=== PATIENT | male | born 1995 | race Caucasian/White ===

== ENCOUNTER 2024-08-01 13:58 | Inpatient (IN) | payer OTHER, SELFPAY ==
[2024-08-01] VITALS (7 sets, daily range): BP systolic 108–141; BP diastolic 60–97; PULSE 66–95; RESP 12–18; TEMP 36.6–36.9; O2SAT 90–98; BMI 25.8
--- NOTE | 2024-08-01 14:02 | ECG_ITS ---
Tricida Skweez Test Date: 2024-08-01 Pat Name: Jose G Levy Department: Room: Gender: Male Legal Job Titles: : 1995 Requested By: Radha Ortiz Order Number: [id number] Oscar MD: Hali Llamas M.D. Measurements Intervals [place] Rate: 80 P: 67 FL: 182 QRS: 86 QRSD: 121 T: 47 QT: 387 QTc: 447 Interpretive Statements SINUS RHYTHM POSSIBLE LEFT ATRIAL ENLARGEMENT [-0.1mV P-WAVE IN V1/V2] POSSIBLE RIGHT VENTRICULAR CONDUCTION DELAY [RSR (QR) IN V1/V2] No previous ECG available for comparison Electronically Signed On 08-01-2024 22:41:00 CDT by Hali Llamas M.D. [email or web address]
--- NOTE | 2024-08-01 14:22 | ED_ITS ---
HPI - Overdose 2 General: Chief Complaint: Overdose Stated Complaint: SI/ Overdose Time Seen by Provider: 08/01/24 13:59 History of Present Illness: 28-year-old man emergency room with alco hol intoxication and an attempted overdose. Apparently he took 10 of his 's Prozac. 40 mg. He says he thinks of suicidal thoughts all the time. He says nothing really provoked him he just had an impulsive thought to kill himself. Related Data Home Medications Medication Instructions Recorded Confirmed fluoxetine 40 mg capsule 40 mg PO QAM 08/01/24 08/01/24 folic acid 1 mg tablet 1 mg PO DAILY 08/01/24 08/01/24 hydroxyzine HCl 25 mg tablet 25 mg PO TID 08/01/24 08/01/24 trazodone 50 mg tablet 50 mg PO QPM 08/01/24 08/01/24 Allergies Allergy/AdvReac Type Severity Reaction Status Date / Time No Known Allergies Allergy Verified 08/01/24 14:09 Review of Systems 2 Narrative: Constitutional symptoms: Negative except as documented in HPI. Skin symptoms: Negative except as documented in HPI. Eye symptoms: Negative except as documented in HPI. ENMT symptoms: Negative except as documented in HPI. Respiratory symptoms: Negative except as documented in HPI. Cardiovascular symptoms: Negative except as documented in HPI. Gastrointestinal symptoms: Negative except as documented in HPI. Genitourinary symptoms: Negative except as documented in HPI. Musculoskeletal symptoms: Negative except as documented in HPI. Neurologic symptoms: Negative except as documented in HPI. Psychiatric symptoms: Negative except as documented in HPI. Endocrine symptoms: Negative except as documented in HPI. Physical Exam 2 Narrative: EXAM NARRATIVE: General: Alert, no acute distress. Skin: Warm, dry. Head: Normocephalic, atraumatic. Neck: Supple, trachea midline. Eye: Extraocular movements are intact. Ears, nose, mouth and throat: mucosa moist. Cardiovascular: Regular, Normal peripheral perfusion. Respiratory: Lungs are clear to auscultation, respirations are non-labored, breath sounds are equal, Symmetrical chest wall expansion. Gastrointestinal: Soft, Nontender, Non distended Musculoskeletal: Normal ROM, no deformity. Neurological: Alert and oriented, No focal neurological deficit observed. Psychiatric: Cooperative, appears intoxicated, quite talkative, does endorse daily suicidal thoughts. Course 2 Vital Signs: Vital signs: Vital Signs Temperature 97.9 F 10/23/24 14:00 Pulse Rate 76 08/01/24 15:31 Respiratory Rate 12 08/01/24 14:00 Blood Pressure 118/72 08/01/24 15:31 Pulse Oximetry 90 08/01/24 15:31 Oxygen Delivery Me thod Room Air 08/01/24 15:31 MDM - Overdose Medical Decision Making Differential diagnosis: Patient with reported depression and suicidal ideation. concerns for infection, alcohol intoxication, cardiac issues or other medical problems prior to psychiatric admission. Workup: labwork, ekg ordered to evaluate the pathologies and to clear the patient medically prior to psychiatric admission EKG: Time 1402. Rate 80. Normal sinus rhythm, No ST-T changes, no ectopy, normal VA & QRS intervals, This was reviewed and interpreted by myself the ER physician at 1405 Lab Review: Laboratory results were reviewed and interpreted by myself the emergency room physician. Lab review: - Medically cleared. - EKG shows no ischemic changes. - Blood alcohol level is 144, -Tylenol and salicylate levels are negative. - Drug screen is negative - No signs of infection, urinalysis clear and white count is not elevated - No anemia. - BUN and creatinine are within normal limits. Consultation: I spoke with Dr. Barreto who agrees to admission. Assessment and plan: Suicidal ideation Intentional overdose Alcohol intoxication -Admission to neuropsychiatric unit for continued evaluation and treatment. - All lab work was reviewed and interpreted personally by myself, the ER physician - Evaluation and treatment of this problem were appropriate in the emergency setting Lab Data 08/01/24 14:34 08/01/24 14:34 Laboratory Results WBC 10.89 10^3/uL (3.29-11.43) 08/01/24 14:34 RBC 4.46 10^6/uL (3.85-5.65) 08/01/24 14:34 Hgb 13.60 g/dL (11.27-16.99) 08/01/24 14:34 Hct 39.8 % (37-53) 08/01/24 14:34 MCV 89.2 fl (82-101) 08/01/24 14:34 MCH 30.5 pg (27-33) 08/01/24 14:34 MCHC 34.2 g/dL (30-55) 08/01/24 14:34 RDW 12.4 % (12.1-15.1) 08/01/24 14:34 Plt Count 154 10^3/cmm (157-399) L 08/01/24 14:34 MPV 10.2 fL (7.4-10.4) 08/01/24 14:34 Neut % (Auto) 78.1 % 08/01/24 14:34 Lymph % (Auto) 12.9 % 08/01/24 14:34 [place] % (Auto) 7.0 % 08/01/24 14:34 Eos % (Auto) 1.0 % 08/01/24 14:34 Baso % (Auto) 0.5 % 08/01/24 14:34 Neut # (Auto) 8.52 10^3/uL (1.8-7.7) H 08/01/24 14:34 Lymph # (Auto) 1.4 10^3/uL (0.8-4.8) 08/01/24 14:34 [place] # (Auto) 0.8 10^3/uL (0.2-0.9) 08/01/24 14:34 Eos # (Auto) 0.1 10^3/uL (0.0-0.8) 08/01/24 14:34 Baso # (Auto) 0.1 10^3/uL (0.0-0.1) 08/01/24 14:34 Nucleated RBC % (auto) 0 % 08/01/24 14:34 Nucleated RBCs # 0.0 /100WBC 08/01/24 14:34 Sodium 134 mmol/L (136-145) L 08/01/24 14:34 Potassium 3.7 mmol/L (3.5-5.1) 08/01/24 14:34 Chloride 98 mmol/L (98-107) 08/01/24 14:34 Carbon Dioxide 22 mmol/L (22-29) 08/01/24 14:34 Anion Gap 17.7 (5-19) 08/01/24 14:34 BUN 14 mg/dL (6-20) 08/01/24 14:34 Creatinine 0.8 mg/dL (0.7-1.2) 08/01/24 14:34 GFR Calculation 115.1 mL/min (90-130) 08/01/24 14:34 Glucose 88 mg/dL (65-115) 08/01/24 14:34 Calculated Osmolality 278 mOsm/kg (285-295) L 08/01/24 14:34 Calcium 8.6 mg/dL (8.5-10.5) 08/01/24 14:34 Total Bilirubin 0.2 mg/dL (0.15-1.2) 08/01/24 14:34 AST 23 U/L (0-40) 08/01/24 14:34 ALT 14 U/L (0-41) 08/01/24 14:34 Alkaline Phosphatase 62 U/L (40-130) 08/01/24 14:34 Total Protein 6.8 g/dL (6.6-8.7) 08/01/24 14:34 Albumin 4.9 g/dL (3.5-5.2) 08/01/24 14:34 Globulin 1.9 g/dL (1.3-4.6) 08/01/24 14:34 TSH 0.80 uIU/mL (0.27-4.20) 08/01/24 14:34 Urine Color Yellow (Yellow) 08/01/24 14:20 Urine Appearance Clear (CLEAR) 08/01/24 14:20 Urine pH 5.5 (5-7) 08/01/24 14:20 Ur Specific Nursery 1.003 (1.005-1.030) L 08/01/24 14:20 Urine Protein Negative (Negative) 08/01/24 14:20 Urine Glucose (UA) Negative (Normal) 08/01/24 14:20 Urine Ketones Negative (Negative) 08/01/24 14:20 Urine Blood Negative (Negative) 08/01/24 14:20 Urine Nitrate Negative (Negative) 08/01/24 14:20 Urine Bilirubin Negative (Negative) 08/01/24 14:20 Urine Urobilinogen 0.2 mg/dL (Negative) 08/01/24 14:20 Ur Leukocyte Esterase Negative (Negative) 08/01/24 14:20 Urine RBC 0-2 /hpf (0-2) 08/01/24 14:20 Urine WBC 0-5 /hpf (0-5) 08/01/24 14:20 Ur Squamous Epith Cells 0-5 /hpf (0-5) 08/01/24 14:20 Amorphous Sediment Not Reportable 08/01/24 14:20 Urine Bacteria None seen /hpf (NONE) 08/01/24 14:20 Hyaline Casts 0-4 /lpf H 08/01/24 14:20 Salicylates < 0.3 mg/dL (3-10) L 08/01/24 14:34 Urine Opiates Screen Negative ng/mL (Negative) 08/01/24 14:20 Acetaminophen < 5.0 ug/mL (10-30) L 08/01/24 14:34 Ur Barbiturates Screen Negative ng/mL (Negative) 08/01/24 14:20 Ur Phencyclidine Scrn Negative ng/mL (Negative) 08/01/24 14:20 Ur Amphetamines Screen Negative ng/mL (Negative) 08/01/24 14:20 U Benzodiazepines Scrn Negative ng/mL (Negative) 08/01/24 14:20 Urine Cocaine Screen Negative ng/mL (Negative) 08/01/24 14:20 U Marijuana (THC) Screen Negative ng/mL (Negative) 08/01/24 14:20 Ethyl Alcohol 144 mg/dL (0-10) H 08/01/24 14:34 No radiology studies performed this visit Discharge Plan Discharge Patient Disposition: Admitted As Inpatient Clinical Impression: Depression with suicidal ideation, Intentional overdose, Alcohol intoxication Condition: Stable Coding Level of Care Code ED Preservationist for Emily Oliva
--- NOTE | 2024-08-01 14:25 | PC.NURSE ---
96 hour hold rights read and reviewed with patient. Patient verbalized understandings. He stated that his name was spelled wrong on his name band and paperwork. This nurse got patients I.D. and confirmed with patient and had registration fix patients name in the system.
--- NOTE | 2024-08-01 14:26 | PC.NURSE ---
This nurse contacted poison control via phone. Rm, a pharmacist, said 200 mg is considered toxic dose and peak time is 6-8 hours. Rm stated pt could experience n/v, tachycardia, and dry mouth. Rm said to rule out co-ingestions, do initial EKG and repeat in 4-6 hours, and collect a UDS. Rm said he was going to fax information regarding medication to us. This nurse relayed this information to .
[2024-08-01 14:35] LABS: Bilirubin Urine Negative (Negative); Blood Urine Negative (Negative); Glucose Urine UA Negative (Normal); Ketones Urine Negative (Negative); Leukocyte Esterase Urine Negative (Negative); Nitrate Urine Negative (Negative); Protein Urine Negative (Negative); Specific Gravity, Urine 1.003 (1.005-1.030); Urine Appearance Clear (CLEAR); Urine Color Yellow (Yellow); Urobilinogen Urine 0.2 mg/dL (Negative); pH Urine 5.5 (5-7)
[2024-08-01 14:39] LABS: Bacteria Urine None Seen /hpf; Hyaline Casts Urine 0-4 /lpf; RBC Urine 0-2 /hpf (0-2); Squamous Epithelial Cell Urine 0-5 /hpf (0-5); WBC Urine 0-5 /hpf (0-5)
[2024-08-01 14:43] LABS: Amphetamines Screen Urine Negative (Negative); Barbiturates Screen Urine Negative (Negative); Benzodiazepines Screen Urine Negative (Negative); Cocaine Screen Urine Negative (Negative); Opiate Screen Urine Negative (Negative); PCP Screen Urine Negative (Negative); THC Screen Urine Negative (Negative)
[2024-08-01 14:43] LABS: Basophils # 0.1 10^3/uL (0.0-0.1); Basophils % 0.5 %; Eosinophils # 0.1 10^3/uL (0.0-0.8); Hematocrit 39.8 % (37-53); Lymphocytes # 1.4 10^3/uL (0.8-4.8); Lymphocytes % 12.9 %; Mean Corpuscular HGB Conc 34.2 g/dL (30-55); Mean Corpuscular Hemoglobin 30.5 pg (27-33); Mean Corpuscular Volume 89.2 fl (82-101); Mean Platelet Volume 10.2 fL (7.4-10.4); Monocytes # 0.8 10^3/uL (0.2-0.9); Neutrophils # 8.52 10^3/uL (1.8-7.7); Neutrophils % 78.1 %; Nucleated Red Blood Cells % 0 %; Platelet Count 154 10^3/cmm (157-399); Red Blood Count 4.46 10^6/uL (3.85-5.65); Red Cell Distribution Width 12.4 % (12.1-15.1); White Blood Count 10.89 10^3/uL (3.29-11.43)
[2024-08-01 15:20] LABS: Alanine Aminotransferase 14 U/L (0-41); Albumin Level 4.9 g/dL (3.5-5.2); Alcohol Level 144 mg/dL (0-10); Alkaline Phosphatase 62 U/L (40-130); Anion Gap 17.7 (5-19); Aspartate Amino Transferase 23 U/L (0-40); Blood Urea Nitrogen 14 mg/dL (6-20); Calcium 8.6 mg/dL (8.5-10.5); Carbon Dioxide 22 mmol/L (22-29); Chloride 98 mmol/L (98-107); Creatinine Clr Calc Pharmacy 139.7752; Globulin 1.9 g/dL (1.3-4.6); Glomerular Filtration Rate 115.1 mL/min (90-130); Glucose 88 mg/dL (65-115); Osmolality Calculated 278 mOsm/kg (285-295); Potassium 3.7 mmol/L (3.5-5.1); Sodium 134 mmol/L (136-145); Total Bilirubin 0.2 mg/dL (0.15-1.2); Total Protein 6.8 g/dL (6.6-8.7)
[2024-08-01 15:23] LABS: Acetaminophen < 5.0 ug/mL (10-30); Salicylate < 0.3 mg/dL (3-10)
[2024-08-01] MEDS: nicotine 21 mg Patch 1 PATCH TRANSDERMA (18:27)
[2024-08-02 06:00] VITALS: BP 120/61; PULSE 61; RESP 16; TEMP 37; O2SAT 96
[2024-08-02 08:00] VITALS: BP 132/80; PULSE 60; RESP 16; TEMP 36.7; O2SAT 98
--- NOTE | 2024-08-02 09:33 | PC.NURSE ---
LAYING IN BED STARRING UP AT THE CEILING. MAKES NO EYE CONTACT WITH THIS RN. FLAT AFFECT IS NOTED WITH DEPRESSED AND ANXIOUS MOOD. REPORTS HE DID NOT SLEEP GOOD LAST NIGHT. STATES I DON'T TAKE SLEEPING PILLS. ENDORSES FREQUENT SUICIDAL THOUGHTS WITH NO PLAN. STATES HE HAS THOUGHTS OF HARMING OTHERS BUT WOULD NOT ELABORATE. DENIES AVH AT THIS TIME. RATES ANXIETY AND DEPRESSION 04/18. MED NURSE TO GIVE PRN ANXIETY MEDICATION. DENIES PAIN. STATES HE HAS NO GOAL. EVASIVE WITH ASSESSMENT QUESTIONS. CONTINUES [facility] FOR ALCHOHOL WITHDRAWAL PROTOCOL, SCORES ONE. ALL QUESTIONS ANSWERED AND SUPPORT WAS VOICED.
[2024-08-02] MEDS: folic acid 1 mg Tablet PO (09:49)
[2024-08-02] MEDS: thiamine 100 mg Tablet PO (09:49)
[2024-08-02] MEDS: multivitamin therapeutic Tablet 1 TAB PO (09:49)
[2024-08-02] MEDS: hyDROXYzine 25 mg Capsule 50 MG PO (09:50)
[2024-08-02 12:00] VITALS: BP 114/67; PULSE 57; RESP 16; O2SAT 99
[2024-08-02 16:00] VITALS: BP 115/74; PULSE 70; RESP 16; O2SAT 98
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
[2024-08-02 19:30] VITALS: BP 110/78; PULSE 83; RESP 18; TEMP 36.9; O2SAT 99
[2024-08-03 00:29] VITALS: RESP 16
--- NOTE | 2024-08-03 00:30 | PC.NURSE ---
pt refused resp at 16 nurse notified
[2024-08-03 04:00] VITALS: BP 115/68; PULSE 75; RESP 16; TEMP 36.6; O2SAT 99
[2024-08-03 07:30] VITALS: BP 127/81; PULSE 63; RESP 17; TEMP 37; O2SAT 100
[2024-08-03] MEDS: folic acid 1 mg Tablet PO (08:37)
[2024-08-03] MEDS: thiamine 100 mg Tablet PO (08:38)
[2024-08-03] MEDS: multivitamin therapeutic Tablet 1 TAB PO (08:38)
--- NOTE | 2024-08-03 08:40 | PC.NURSE ---
PT REPORTS HE SLEPT GOOD LAST NIGHT. ISOLATES AND WITHDRAWN TO ROOM. DENIES PAIN. DENIES SI/HI AND AVH AT THIS TIME. AFFECT IS FLAT, MOOD DEPRESSED. RATES ANXIETY 5/10 AND DEPRESSION 6/10. CONTINUES CIWA PROTOCOL AND SCORE IS ONE THIS AM. PT DENIES ANY ACUTE ALCOHOL WITHDRAWAL SYMPTOMS. PT STATES IS SUPPOSE TO START HIM ON A NEW ANTI DEPRESSANT DUE TO THE OTHER ONES NOT WORKING. ALL QUESTIONS ANSWERED AND SUPPORT WAS VOICED.
[2024-08-03 12:00] VITALS: BP 121/72; PULSE 64; RESP 17; TEMP 36.8; O2SAT 99
--- NOTE | 2024-08-03 17:34 | P.NPUPN_ITS ---
Subjective NPU 2 Subjective: 28-year-old male with borderline persona lity traits and major depressive disorder severe admitted with overdose on Prozac with a history of multiple suicidal attempts and chronic self-injurious behavior. Patient continued to report feeling depressed. He had endorsed some continued feelings of hopelessness. He had reported previous evidence of failure on 2 different antidepressants including Zoloft and Prozac and requested another medication. He had reported low energy and having frequent thoughts about harming himself for several years. He had reported a sense of hopelessness. He was able to attend groups. Patient had reported that he would like to continue psychotherapy on an outpatient basis. Psychoeducation regarding dialectical behavioral therapy was provided to the patient. Mental Status Exam 2 MSE Comments: Patient is a casually dressed healthy white male with fair hygiene and normal gait. There was no evidence of any abnormal involuntary motor movements, tics, or tremors appreciated. There was evidence of prominent psychomotor retardation. His speech was normal in regards to rate rhythm and prosody. He endorsed no frequent suicidal ideation with no active plan here but acknowledging signficant overdose. He denied any homicidal ideation. He did not appear to be responding to internal stimuli. There was no clear evidence of delusional thinking. There were healed scars noted on his hand and wrist. His thought process was linear, logical and goal-directed. He was alert and oriented to person,place, time, and situation. His attention span appeared fair. His recent and remote memory were grossly intact. His insight was poor. His judgment was poor. His impulse control appeared poor as well. Vitals/I&O/Wt Last Vital Signs Temp 98.2 F 08/03/24 12:00 Pulse 64 08/03/24 12:00 Resp 17 08/03/24 12:00 BP 121/72 08/03/24 12:00 Pulse Ox 99 08/03/24 12:00 O2 Del Method Room Air 08/03/24 04:00 Data NPU 08/01/24 14:34 08/01/24 14:34 A&P Assessment and plan (1) Alcohol abuse: (2) Major depressive disorder, recurrent severe without psychotic features: (3) Borderline personality disorder: Plan 28-year-old male history of self-injurious behavior, dysthymia, and alcohol abuse admitted after intentional overdose on Prozac with a long history of depression and poor impulse control. #1.? Engage patient in individual milieu and group therapy. #2?? Recommend sober living treatment at the highest level of care to which the patient is willing to commit #3??? CIWA for alcohol withdrawal #4?? TO-15 minute checks? #5?? Will attempt to gather collateral information #6 Will start effexor xr 37.5mg to target anxiety and depression. Referral for DBT.. Involuntary Hold Information 2 96 Hour Hold: 96 Hour Involuntary Admission: Yes 96 Hour Hold Ending Date: 08/07/24 96 Hour Hold Ending Time: 14:14 Other Hold: Hold End Date: 08/07/24 Attestations NPU 2 Medical Necessity Statement*: Inpatient hospitalization is medically necessary and deemed to ?be ?the clinically appropriate intervention ?at this time.? We will monitor/initiate medications and make changes as indicated.? The patient?s likely length of stay 5-7 days. Coding Level of Care Code Acute Code for [facility] Fwd Diagnoses Alcohol abuse F10.10 Major depressive disorder, recurrent severe without psychotic features F33.2 Borderline personality disorder F60.3
[2024-08-03] MEDS: venlafaxine ER (24HR) 37.5 mg Capsule PO (17:45)
[2024-08-03 19:28] VITALS: BP 141/88; PULSE 67; RESP 18; TEMP 36.8; O2SAT 99
[2024-08-03] MEDS: trazodone 50 mg Tablet PO (20:09)
[2024-08-04 06:00] VITALS: BP 107/70; PULSE 66; RESP 16; TEMP 36.5; O2SAT 99
[2024-08-04] MEDS: folic acid 1 mg Tablet PO (08:39)
[2024-08-04] MEDS: multivitamin therapeutic Tablet 1 TAB PO (08:39)
[2024-08-04] MEDS: thiamine 100 mg Tablet PO (08:39)
[2024-08-04] MEDS: venlafaxine ER (24HR) 37.5 mg Capsule PO (08:39)
[2024-08-04 14:00] VITALS: BP 127/83; PULSE 60; RESP 18; TEMP 36.8; O2SAT 100
--- NOTE | 2024-08-04 18:05 | P.NPUPN_ITS ---
Subjective NPU 2 Subjective: 28-year-old male with borderline persona lity traits and major depressive disorder severe admitted with overdose on Prozac with a history of multiple suicidal attempts and chronic self-injurious behavior. Patient had isolated himself on the milieu. He had reported continued depressed mood. The patient had stated that he was tolerating the Effexor at this time. He had reported feeling more hopeful about receiving outpatient psychotherapy. He had reported struggles at times with concentration and reported that he often struggled with worry as well. Patient had reported that he often engaged in self-injury as a means of managing emotional pain and tension. Mental Status Exam 2 MSE Comments: Patient is a casually dressed healthy white male with fair hygiene and normal gait. There was no evidence of any abnormal involuntary motor movements, tics, or tremors appreciated. There was evidence of prominent psychomotor retardation. His speech was normal in regards to rate rhythm and prosody. He endorsed no frequent suicidal ideation with no active plan currently. He denied any homicidal ideation. He did not appear to be responding to internal stimuli. There was no clear evidence of delusional thinking. There were healed scars noted on his hand and wrist. His thought process was linear, logical and goal-directed. He was alert and oriented to person,place, time, and situation. His attention span appeared fair. His recent and remote memory were grossly intact. His insight was poor. His judgment was poor. His impulse control appeared poor as well. Vitals/I&O/Wt Last Vital Signs Temp 98.2 F 08/04/24 14:00 Pulse 60 08/04/24 14:00 Resp 18 08/04/24 14:00 BP 127/83 08/04/24 14:00 Pulse Ox 100 08/04/24 14:00 O2 Del Method Room Air 08/04/24 14:00 Data NPU 08/01/24 14:34 08/01/24 14:34 A&P Assessment and plan (1) Major depressive disorder, recurrent severe without psychotic features: (2) Alcohol abuse: (3) Borderline personality disorder: Plan 28-year-old male history of self-injurious behavior, dysthymia, and alcohol abuse admitted after intentional overdose on Prozac with a long history of depression and poor impulse control. #1.? Engage patient in individual milieu and group therapy. #2?? Recommend sober living treatment at the highest level of care to which the patient is willing to commit #3??? CIWA for alcohol withdrawal #4?? TO-15 minute checks? #5?? Will attempt to gather collateral information #6 Increase Effexor xr 75mg in am. Referral for DBT.. Involuntary Hold Information 2 96 Hour Hold: 96 Hour Involuntary Admission: Yes 96 Hour Hold Ending Date: 08/07/24 96 Hour Hold Ending Time: 14:14 Other Hold: Hold End Date: 08/07/24 Attestations NPU 2 Medical Necessity Statement*: Inpatient hospitalization is medically necessary and deemed to ?be ?the clinically appropriate intervention ?at this time.? We will monitor/initiate medications and make changes as indicated.? The patient?s likely length of stay 5-7 days. Coding Level of Care Code Acute Code for Chg Fwd Diagnoses Major depressive disorder, recurrent severe without psychotic features F33.2 Alcohol abuse F10.10 Borderline personality disorder F60.3
[2024-08-04 20:26] VITALS: BP 124/78; PULSE 61; RESP 17; TEMP 36.5; O2SAT 100
[2024-08-04] MEDS: trazodone 50 mg Tablet PO (20:26)
[2024-08-05 05:34] VITALS: BP 110/72; PULSE 52; RESP 17; TEMP 36.4; O2SAT 100
[2024-08-05] MEDS: multivitamin therapeutic Tablet 1 TAB PO (08:12)
[2024-08-05] MEDS: folic acid 1 mg Tablet PO (08:12)
[2024-08-05] MEDS: venlafaxine ER (24HR) 75 mg Capsule PO (08:12)
[2024-08-05] MEDS: thiamine 100 mg Tablet PO (08:12)
[2024-08-05 14:00] VITALS: BP 121/81; PULSE 56; RESP 16; TEMP 36.7; O2SAT 99
--- NOTE | 2024-08-05 16:02 | P.NPUPN_ITS ---
Subjective NPU 2 Subjective: 28-year-old male with borderline persona lity traits and major depressive disorder severe admitted with overdose on Prozac with a history of multiple suicidal attempts and chronic self-injurious behavior. Patient reported no thoughts of hurting himself today. He had reported feeling more optimistic. He reported no side effects from his Effexor. He had continued to isolate himself on the milieu. He had expressed desire to begin psychotherapy on an outpatient basis. He had reported improved sleep with less frequent awakenings at night. Mental Status Exam 2 MSE Comments: Patient is a casually dressed healthy white male with fair hygiene and normal gait. There was no evidence of any abnormal involuntary motor movements, tics, or tremors appreciated. There was evidence of mild psychomotor retardation. His speech was normal in regards to rate rhythm and prosody. He endorsed no frequent suicidal ideation with no active plan currently. He denied any homicidal ideation. He did not appear to be responding to internal stimuli. There was no clear evidence of delusional thinking. There were healed scars noted on his hand and wrist. His thought process was linear, logical and goal- directed. He was alert and oriented to person,place, time, and situation. His attention span appeared fair. His recent and remote memory were grossly intact. His insight was poor. His judgment was poor. His impulse control appeared poor as well. Vitals/I&O/Wt Last Vital Signs Temp 98.0 F 08/05/24 14:00 Pulse 56 L 08/05/24 14:00 Resp 16 08/05/24 14:00 BP 121/81 08/05/24 14:00 Pulse Ox 99 08/05/24 14:00 O2 Del Method Room Air 08/05/24 05:34 Weight last 48 hrs Weight 78.471 kg Data NPU 08/01/24 14:34 08/01/24 14:34 A&P Assessment and plan (1) Major depressive disorder, recurrent severe without psychotic features: (2) Alcohol abuse: (3) Borderline personality disorder: Plan 28-year-old male history of self-injurious behavior, dysthymia, and alcohol abuse admitted after intentional overdose on Prozac with a long history of depression and poor impulse control. #1.? Engage patient in individual milieu and group therapy. #2?? Recommend sober living treatment at the highest level of care to which the patient is willing to commit #3??? CIWA for alcohol withdrawal #4?? TO-15 minute checks? #5?? Will attempt to gather collateral information #6 Continue Effexor xr 75mg in am. Referral for DBT.. Involuntary Hold Information 2 96 Hour Hold: 96 Hour Involuntary Admission: Yes 96 Hour Hold Ending Date: 08/07/24 96 Hour Hold Ending Time: 14:14 Other Hold: Hold End Date: 08/07/24 Attestations NPU 2 Medical Necessity Statement*: Inpatient hospitalization is medically necessary and deemed to ?be ?the clinically appropriate intervention ?at this time.? We will monitor/initiate medications and make changes as indicated.? The patient?s likely length of stay 1-2 days. Coding Level of Care Code Acute Code for Chg Fwd Diagnoses Major depressive disorder, recurrent severe without psychotic features F33.2 Alcohol abuse F10.10 Borderline personality disorder F60.3
[2024-08-05] MEDS: trazodone 50 mg Tablet PO (20:50)
[2024-08-05 21:41] VITALS: BP 122/83; PULSE 93; RESP 18; TEMP 36.7; O2SAT 95
[2024-08-06 06:00] VITALS: BP 115/70; PULSE 60; RESP 17; TEMP 36.5; O2SAT 100
[2024-08-06] MEDS: multivitamin therapeutic Tablet 1 TAB PO (08:54)
[2024-08-06] MEDS: folic acid 1 mg Tablet PO (08:55)
[2024-08-06] MEDS: venlafaxine ER (24HR) 75 mg Capsule PO (08:55)
[2024-08-06] MEDS: thiamine 100 mg Tablet PO (08:55)
[2024-08-06 11:39] VITALS: BP 115/70; PULSE 60; RESP 17; TEMP 36.5; O2SAT 100
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
[2024-08-06 14:00] VITALS: BP 123/86; PULSE 80; RESP 18; TEMP 36.6; O2SAT 99
== END 2024-08-06 16:13 | disposition home or self-care (01) | DRG 918 ==
LOC: ER 15:28 → NP 17:30
PROVIDERS: Admitting Provider Psychiatry & Neurology Psychiatry; Emergency Provider Emergency Medicine; Visit Provider Psychiatry & Neurology Psychiatry
DX: T43.222A Poisoning by selective serotonin reuptake inhibitors, intentional self-harm, initial encounter (principal); F33.2 Major depressive disorder, recurrent severe without psychotic features; R45.851 Suicidal ideations; F10.129 Alcohol abuse with intoxication, unspecified; Y90.6 Blood alcohol level of 120-199 mg/100 ml; F60.3 Borderline personality disorder; R45.88 Nonsuicidal self-harm; Z81.8 Family history of other mental and behavioral disorders; Z81.1 Family history of alcohol abuse and dependence
CPT/HCPCS: 36415; 80053; 80306; 80307; 81001; 84443; 85025; 93005; 97150; 97165; 99285

== ENCOUNTER 2024-08-07 15:47 | Inpatient (IN) | payer OTHER, SELFPAY ==
[2024-08-07] VITALS (26 sets, daily range): BP systolic 114–131; BP diastolic 71–87; PULSE 75–102; RESP 0–19; TEMP 35.9–36.8; O2SAT 98–100; BMI 24.3; BMI 24.4
--- NOTE | 2024-08-07 15:48 | ECG_ITS ---
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 Measurements Intervals [place] Rate: 88 P: 69 SC: 192 QRS: 89 QRSD: 114 T: 66 QT: 411 QTc: 498 Interpretive Statements SINUS RHYTHM POSSIBLE LEFT ATRIAL ENLARGEMENT [-0.1mV P-WAVE IN V1/V2] MODERATE INTRAVENTRICULAR CONDUCTION DELAY [110+ ms QRS DURATION] No previous ECG available for comparison Electronically Signed On 08-07-2024 16:24:12 CDT by Jacinto Redmond M.D. [email or web address]
--- NOTE | 2024-08-07 15:52 | PC.NURSE ---
PATIENT OVERDOSE MEDICATIONS: HYDROXYZINE 25 MG - APPROXIMATELY 9 PILLS EFFEXOR 37.5 MG - APPROXIMATELY 14 PILLS EFFEXOR 75 MG - APPROXIMATELY 14 PILLS FLUOXETINE 40 MG - APPROXIMATELY 1 PILL
--- NOTE | 2024-08-07 15:55 | W.ED.OVERDOS ---
HPI - Overdose General: Chief Complaint: Overdose Stated Complaint: Overdose Time Seen by Provider: 08/07/24 15:51 Source: EMS Mode of arrival: EMS Limitations: no limitations History of Present Illness: 28-year-old male who had recently been discharged from our psych vargas states that he is feeling suicidal today and did attempt to kill himself patient taken multiple of his meds and then shot himself in the garage with a lawnmower running. Patient is here by EMS he is a awake and alert answering all my questions appropriately he is not somnolent. He states he believes he took the pills around noon or 1. Related Data Home Medications Medication Instructions Recorded Confirmed folic acid 1 mg tablet 1 mg PO DAILY 08/01/24 08/01/24 hydroxyzine HCl 25 mg tablet 25 mg PO TID 08/01/24 08/01/24 Previous Rx's Medication Instructions Recorded trazodone 50 mg tablet 50 mg PO QPM 30 days #30 tabs 08/06/24 venlafaxine 150 mg 150 mg PO QAM #30 caps 08/06/24 capsule,extended release 24 hr (Effexor XR) venlafaxine 37.5 mg 37.5 mg PO DAILY 14 days #14 caps 08/06/24 capsule,extended release 24 hr (Effexor XR) venlafaxine 75 mg capsule,extended 75 mg PO DAILY #14 caps 08/06/24 release 24 hr (Effexor XR) Allergies Allergy/AdvReac Type Severity Reaction Status Date / Time No Known Allergies Allergy Verified 08/01/24 14:09 Review of Systems Const: Denies: fever(s), chills, body aches or change in appetite ENMT: Denies: throat pain or dental pain Card: Denies: chest pain Resp: Denies: dyspnea GI: Denies: abdominal pain, nausea, vomiting or diarrhea Musc: Denies: neck pain or back pain Skin/Breast: Denies: rash Neuro: Denies: headache(s) Psych: Reports: depression and suicidal ideation PFS ED PFSH: Family History (Updated 08/04/24 @ 15:12 by Fabiana Aparicio RN) Mother Psychiatric illness Physical Exam Const: COMMON NORMALS: no acute distress, patient oriented x3 and healthy appearing HENMT: COMMON NORMALS: normocephalic and atraumatic HEAD & SCALP: normocephalic and atraumatic Eye: COMMON NORMALS: conjunctivae normal CONJUNCTIVA: Yes conjunctivae normal Neck/C-Spine: COMMON NORMALS: full ROM and supple Chest: COMMONS NORMALS: normal inspection of the chest and normal palpation of entire chest wall Resp: COMMON NORMALS: normal respiratory effort, No retractions, No use of accessory muscles and clear to auscultation bilaterally AUSCULTATION: clear to auscultation bilaterally Cardio: COMMON NORMALS: regular rate, regular rhythm and No murmurs present (Cardio) RATE: regular rate RHYTHM: regular rhythm Extremity: COMMON NORMALS: normal to inspection and full ROM Neuro: COMMON NORMALS: patient oriented x3, moves all extremities and no focal motor deficits Psych: COMMON NORMALS: mental status grossly normal, Normal thought process present and cooperative MOOD & AFFECT: Yes depressed mood THOUGHT PROCESS: Normal thought process present THOUGHT CONTENT: Yes Suicidality present Skin: COMMON NORMALS: no rashes or lesions noted and no wounds GENERAL SKIN EXAM: no rashes or lesions noted Course Vital Signs: Vital signs: Vital Signs Temperature 97.6 F 08/07/24 15:53 Pulse Rate 89 08/07/24 15:53 Respiratory Rate 18 08/07/24 15:53 Blood Pressure 126/71 08/07/24 15:53 Pulse Oximetry 98 08/07/24 15:53 Oxygen Delivery Me thod Room Air 08/07/24 15:53 MDM - Overdose Medical Decision Making Patient presents here with an overdose and also had carbon oxide poisoning new him on nonrebreather he is awake and alert here I did speak to the hospitalist will admit to the ICU until he is cleared to be able to be transferred to the [facility] you have also consulted psychiatrist and placed patient on a 96-hour hold. Medical Records I reviewed the patient's medical records. Lab Data I reviewed the patient's lab results. 08/07/24 15:48 08/07/24 15:48 Laboratory Results WBC 10.61 10^3/uL (3.29-11.43) 08/07/24 15:48 RBC 4.93 10^6/uL (3.85-5.65) 08/07/24 15:48 Hgb 16.20 g/dL (11.27-16.99) 08/07/24 15:48 Hct 44.6 % (37-53) 08/07/24 15:48 MCV 90.5 fl (82-101) 08/07/24 15:48 MCH 32.9 pg (27-33) 08/07/24 15:48 MCHC 36.3 g/dL (30-55) 08/07/24 15:48 RDW 12.4 % (12.1-15.1) 08/07/24 15:48 Plt Count 168 10^3/cmm (157-399) 08/07/24 15:48 MPV 10.2 fL (7.4-10.4) 08/07/24 15:48 Neut % (Auto) 79.2 % 08/07/24 15:48 Lymph % (Auto) 12.8 % 08/07/24 15:48 Marshall % (Auto) 6.5 % 08/07/24 15:48 Eos % (Auto) 0.5 % 08/07/24 15:48 Baso % (Auto) 0.5 % 08/07/24 15:48 Neut # (Auto) 8.41 10^3/uL (1.8-7.7) H 08/07/24 15:48 Lymph # (Auto) 1.4 10^3/uL (0.8-4.8) 08/07/24 15:48 Marshall # (Auto) 0.7 10^3/uL (0.2-0.9) 08/07/24 15:48 Eos # (Auto) 0.1 10^3/uL (0.0-0.8) 08/07/24 15:48 Baso # (Auto) 0.1 10^3/uL (0.0-0.1) 08/07/24 15:48 Nucleated RBC % (auto) 0 % 08/07/24 15:48 Nucleated RBCs # 0.0 /100WBC 08/07/24 15:48 Specimen Type Arterial 08/07/24 15:57 Sample Site Radial, right 08/07/24 15:57 ABG pH 7.41 (7.35-7.45) 08/07/24 15:57 ABG pCO2 38.0 mmHg (35-45) 08/07/24 15:57 ABG pO2 79.2 mmHg (80.0-100.0) L 08/07/24 15:57 ABG PO2/FiO2 Ratio 377 08/07/24 15:57 ABG HCO3 23.9 mmol/L (22-26) 08/07/24 15:57 ABG O2 Saturation 98.3 08/07/24 15:57 ABG Base Excess -0.5 mmol/L (-2.0-2.0) 08/07/24 15:57 Navid Test Pos 08/07/24 15:57 A-a O2 Gradient 3.0 mmHg (5-10) L 08/07/24 15:57 Hematocrit 42.9 % (42-52) 08/07/24 15:57 Hgb O2 Saturation 71.9 % (95-100) L 08/07/24 15:57 Carboxyhemoglobin 25.7 %THgb (0.4-20.1) H 08/07/24 15:57 Methemoglobin 1.1 % (0.4-1.5) 08/07/24 15:57 Total Hemoglobin 14.0 g/dL (14-18) 08/07/24 15:57 Sodium 139.0 mmol/L (131-143) 08/07/24 15:57 Potassium 3.4 mmol/L (3.5-5.0) L 08/07/24 15:57 Glucose 93.0 mg/dL (70-115) 08/07/24 15:57 Ionized Calcium 1.1 mmol/L (1.1-1.4) 08/07/24 15:57 O2 Delivery Device Room air 08/07/24 15:57 FiO2 21.0 % 08/07/24 15:57 [employer] Shothole Driller ID [place] 08/07/24 15:57 Sodium 137 mmol/L (136-145) 08/07/24 15:48 Potassium 3.0 mmol/L (3.5-5.1) L 08/07/24 15:48 Chloride 98 mmol/L (98-107) 08/07/24 15:48 Carbon Dioxide 25 mmol/L (22-29) 08/07/24 15:48 Anion Gap 17.0 (5-19) 08/07/24 15:48 BUN 14 mg/dL (6-20) 08/07/24 15:48 Creatinine 1.0 mg/dL (0.7-1.2) 08/07/24 15:48 GFR Calculation 89.0 mL/min (90-130) L 08/07/24 15:48 Glucose 94 mg/dL (65-115) 08/07/24 15:48 Calculated Osmolality 284 mOsm/kg (285-295) L 08/07/24 15:48 Calcium 8.8 mg/dL (8.5-10.5) 08/07/24 15:48 Total Bilirubin 0.3 mg/dL (0.15-1.2) 08/07/24 15:48 AST 21 U/L (0-40) 08/07/24 15:48 ALT 18 U/L (0-41) 08/07/24 15:48 Alkaline Phosphatase 67 U/L (40-130) 08/07/24 15:48 Total Protein 7.5 g/dL (6.6-8.7) 08/07/24 15:48 Albumin 5.1 g/dL (3.5-5.2) 08/07/24 15:48 Globulin 2.4 g/dL (1.3-4.6) 08/07/24 15:48 Salicylates < 0.3 mg/dL (3-10) L 08/07/24 15:48 Acetaminophen < 5.0 ug/mL (10-30) L 08/07/24 15:48 Ethyl Alcohol 179 mg/dL (0-10) H 08/07/24 15:48 All radiology interpretation(s) finalized by discharge EKG Data EKG 1: I personally reviewed and interpreted this EKG as follows: EKG interpretation date: 08/07/24 EKG interpretation time: 15:50 Interpretation: nsr hr [address] elevation qrs 114 qtc 456 Discharge Plan Discharge Patient Disposition: Admitted As Inpatient Clinical Impression: Suicide attempt by multiple drug overdose, Carbon monoxide poisoning Condition: Stable Prescriptions: No Action folic acid 1 mg tablet 1 mg PO DAILY hydroxyzine HCl 25 mg tablet 25 mg PO TID venlafaxine [Effexor XR] 75 mg capsule,extended release 24hr 75 mg PO DAILY Qty: 14 1RF venlafaxine [Effexor XR] 37.5 mg capsule,extended release 24hr 37.5 mg PO DAILY 14 Days Qty: 14 1RF venlafaxine [Effexor XR] 150 mg capsule,extended release 24hr 150 mg PO QAM Qty: 30 1RF Rx Instructions: Begin after 08/13/24. trazodone 50 mg tablet 50 mg PO QPM 30 Days Qty: 30 1RF Coding Level of Care Code ED Women'S Studies Professor for Emily Oliva
[2024-08-07 15:59] LABS: Basophils # 0.1 10^3/uL (0.0-0.1); Basophils % 0.5 %; Eosinophils # 0.1 10^3/uL (0.0-0.8); Eosinophils % 0.5 %; Hematocrit 44.6 % (37-53); Lymphocytes # 1.4 10^3/uL (0.8-4.8); Lymphocytes % 12.8 %; Mean Corpuscular HGB Conc 36.3 g/dL (30-55); Mean Corpuscular Hemoglobin 32.9 pg (27-33); Mean Corpuscular Volume 90.5 fl (82-101); Mean Platelet Volume 10.2 fL (7.4-10.4); Monocytes # 0.7 10^3/uL (0.2-0.9); Monocytes % 6.5 %; Neutrophils # 8.41 10^3/uL (1.8-7.7); Neutrophils % 79.2 %; Nucleated Red Blood Cells % 0 %; Platelet Count 168 10^3/cmm (157-399); Red Blood Count 4.93 10^6/uL (3.85-5.65); Red Cell Distribution Width 12.4 % (12.1-15.1); White Blood Count 10.61 10^3/uL (3.29-11.43)
[2024-08-07 16:09] LABS: ABG PH Result 7.41 (7.35-7.45); Arterial Blood Gas Hematocrit 42.9 % (42-52); Base Excess ABG -0.5 mmol/L (-2.0-2.0); Blood Gas Allen Test Pos; Blood Gas Operator Identificat WALCI; Blood Gas Sample Site Radial, right; Blood Gas Sample Type Arterial; Carboxyhemoglobin 25.7 %THgb (0.4-20.1); HCO3 ABG 23.9 mmol/L (22-26); HGB O2 Sat 71.9 % (95-100); Ionized Calcium Level - ABG 1.1 mmol/L (1.1-1.4); Methemoglobin 1.1 % (0.4-1.5); Oxygen Device ROOM AIR; Oxygen Saturation ABG 98.3; PO2 ABG 79.2 mmHg (80.0-100.0); PO2 FiO2 Ratio Arterial Blood 377; Potassium Level - ABG 3.4 mmol/L (3.5-5.0)
--- NOTE | 2024-08-07 16:17 | PC.NURSE ---
96 hour hold rights read to patient. Nicolás from security present during reading of rights. Patient verbalized understandings. Copy of rights given to patient.
[2024-08-07 16:23] LABS: Alanine Aminotransferase 18 U/L (0-41); Albumin Level 5.1 g/dL (3.5-5.2); Alcohol Level 179 mg/dL (0-10); Alkaline Phosphatase 67 U/L (40-130); Aspartate Amino Transferase 21 U/L (0-40); Blood Urea Nitrogen 14 mg/dL (6-20); Calcium 8.8 mg/dL (8.5-10.5); Carbon Dioxide 25 mmol/L (22-29); Chloride 98 mmol/L (98-107); Creatinine Clr Calc Pharmacy 108.9978; Globulin 2.4 g/dL (1.3-4.6); Glucose 94 mg/dL (65-115); Osmolality Calculated 284 mOsm/kg (285-295); Sodium 137 mmol/L (136-145); Total Bilirubin 0.3 mg/dL (0.15-1.2); Total Protein 7.5 g/dL (6.6-8.7)
[2024-08-07 16:24] LABS: Acetaminophen < 5.0 ug/mL (10-30); Salicylate < 0.3 mg/dL (3-10)
--- NOTE | 2024-08-07 17:21 | XRR_ITS ---
PROCEDURE INFORMATION: Exam: XR Chest Exam date and time: 08/07/2024 5:25 PM Age: 28 years old Clinical indication: Shortness of breath; Additional info: SOB TECHNIQUE: Imaging protocol: Radiologic exam of the chest. Views: 1 view. COMPARISON: No relevant prior studies available. FINDINGS: Lungs: Unremarkable. No consolidation or mass. Pleural spaces: Unremarkable. No pleural effusion. No pneumothorax. Heart/Mediastinum: Unremarkable. No cardiomegaly. Bones/joints: Unremarkable. XR/XR chest 1V portable [id number] IMPRESSION: No acute findings.
--- NOTE | 2024-08-07 17:23 | P.HP_ITS ---
Providers/Chief Complaint 2 Chief Complaint: Overdose History of Present Illness Jose G Warren is a 28 year old male with a past medical history of major depressive disorder, who presents [facility] for suicide attempt. Currently patient is alert oriented x 3, following all commands, moves bilateral upper and lower extremities, pupils are equal round reactive to light, dilated, denies any specific complaints. Currently on nonrebreather for carbon monoxide poisoning. No evidence of respiratory distress, good mentation, but is drowsy. Patient reports that today he tried to kill himself, he drinks 6 beers, 2 shots, he locked himself in the garage with the riding lawn more. He took his medications he is not exactly sure which ones, Medications/Allergies Home Medications Medication Instructions Recorded Confirmed Last Taken Type folic acid 1 mg tablet 1 mg PO DAILY 08/01/24 08/01/24 Unknown History hydroxyzine HCl 25 mg tablet 25 mg PO TID 08/01/24 08/01/24 Unknown History trazodone 50 mg tablet 50 mg PO QPM 30 days #30 tabs 08/06/24 Unknown Rx venlafaxine 150 mg 150 mg PO QAM #30 caps 08/06/24 Unknown Rx capsule,extended release 24 hr (Effexor XR) venlafaxine 37.5 mg 37.5 mg PO DAILY 14 days #14 caps 08/06/24 Unknown Rx capsule,extended release 24 hr (Effexor XR) venlafaxine 75 mg capsule,extended 75 mg PO DAILY #14 caps 08/06/24 Unknown Rx release 24 hr (Effexor XR) Allergies Allergy/AdvReac Type Severity Reaction Status Date / Time No Known Allergies Allergy Verified 08/01/24 14:09 PFSH Acute 2 PFSH: Medical History (Updated 08/07/24 @ 17:24 by Robin Kowalski MD) Major depressive disorder, recurrent severe without psychotic features Surgical History (Updated 08/07/24 @ 17:25 by Robin Kowalski MD) No pertinent past surgical history Family History (Updated 08/04/24 @ 15:12 by Fabiana Aparicio RN) Mother Psychiatric illness Social History (Updated 08/07/24 @ 17:25 by Robin Kowalski MD) Smoking and tobacco/nicotine status: never used tobacco/nicotine Alcohol intake: current Substance/Drug Use: never Vitals/I&O/Wt Last Vital Signs Temp 97.6 F 08/07/24 15:53 Pulse 89 08/07/24 15:53 Resp 18 08/07/24 15:53 BP 126/71 08/07/24 15:53 Pulse Ox 98 08/07/24 15:53 O2 Del Method Room Air 08/07/24 15:53 Weight last 48 hrs Weight 72.575 kg Physical Exam 2 Const: COMMON NORMALS: no acute distress and patient oriented x3 HENMT: COMMON NORMALS: normocephalic HEAD & SCALP: normocephalic Eye: COMMON NORMALS: Equal, round and reactive pupils present Neck/C-Spine: COMMON NORMALS: no JVD Resp: COMMON NORMALS: normal respiratory effort, No retractions, No use of accessory muscles and clear to auscultation bilaterally AUSCULTATION: clear to auscultation bilaterally Cardio: COMMON NORMALS: no JVD, regular rate, regular rhythm, S1 normal heart sound present and S2 normal heart sound present RATE: regular rate RHYTHM: regular rhythm HEART SOUNDS: S1 normal heart sound present and S2 normal heart sound present GI: COMMON NORMALS: Normal to inspection, nondistended, normoactive bowel sounds present, Soft to palpation and non-tender Extremity: COMMON NORMALS: no calf tenderness and no pedal edema Neuro: COMMON NORMALS: patient oriented x3, CN's II-XII intact bilaterally and moves all extremities Psych: OTHER: bit is a bit drousy Data 08/07/24 15:48 08/07/24 15:48 A&P Assessment and plan (1) Alcohol intoxication: (2) Carbon monoxide poisoning: (3) Depression with suicidal ideation: (4) Intentional overdose: (5) Suicide attempt by multiple drug overdose: Qualifiers: Encounter type: initial encounter Qualified Code(s): T50.912A - Poisoning by multiple unspecified drugs, medicaments and biological substances, intentional self-harm, initial encounter Plan Carbon monoxide poisoning -Alert oriented x 3, following all commands -He is a bit drowsy -Carboxyhemoglobin levels greater than 25% ? Currently on a nonrebreather ? No evidence of respiratory distress, has good mentation ? Continue nonrebreather, until mentation improves # Will check carboxyhemoglobin level today p.m. ? Neurochecks # Aspiration precautions # Telemetry monitoring Intentional drug overdose ? Reports taking trazodone, Effexor, quantity unknown -Continue telemetry monitoring -Monitor QT interval Suicide attempt -Suicide precautions ?96-hour hold Alcohol abuse, alcohol intoxication -Reports drinking 6 beers, 2 shots before coming to the hospital ? CIWA protocol ? Banana bag ? IV fluids Full code ? SCDs for DVT prophylaxis, Attestations 2 Medical Necessity Statement*: Patient requires hospitalization, inpatient, greater than 2 midnights, for alcohol intoxication, carbon monoxide poisoning, intentional drug overdose, suicide attempt Diagnoses Alcohol intoxication F10.929 Carbon monoxide poisoning T58.91XA Depression with suicidal ideation F32.A; R45.851 Intentional overdose T50.902A Suicide attempt by multiple drug overdose T50.912A Encounter type: initial encounter
[2024-08-07] MEDS: pantoprazole 40 mg SDV IVP (18:34)
[2024-08-07] MEDS: dextrose 5%-sod chloride 0.9% 1,000 ML 75 ML IV (18:40)
[2024-08-07 19:23] LABS: Thyroid Stimulating Hormone 3.59 uIU/mL (0.27-4.20)
--- NOTE | 2024-08-07 19:28 | PC.NURSE ---
received patient from ER staff at 1819. Patient is oriented to person, place, time, and situation. HR: 95, BP: 129/87, SPO2: 100% on 10L NRBM, temp: 96.7. Patient is on a 96 hour hold for suicide attempt, unnecessary cords removed from room. Belongings included a pair of boots, a wallet, a hoodie, pants, and a belt. Locked in patient belonging locker#[id number]
[2024-08-07] MEDS: folic acid 1 MG, multivitamin inj 10 ML, thiamine 100 MG in sodium chloride 0.9% 1,000 ML 252.8 MG IV (19:30)
[2024-08-07 22:01] LABS: Amphetamines Screen Urine Negative (Negative); Barbiturates Screen Urine Negative (Negative); Benzodiazepines Screen Urine Negative (Negative); Cocaine Screen Urine Negative (Negative); Opiate Screen Urine Negative (Negative); PCP Screen Urine Negative (Negative); THC Screen Urine Negative (Negative)
[2024-08-08] VITALS (14 sets, daily range): BP systolic 117–151; BP diastolic 75–95; PULSE 70–126; RESP 16–18; TEMP 36.6–37.2; O2SAT 96–100; BMI 24.5
[2024-08-08 04:49] LABS: ABG PCO2 45.3 mmHg (35-45); ABG PH Result 7.35 (7.35-7.45); Base Excess ABG -0.7 mmol/L (-2.0-2.0); HCO3 ABG 25.2 mmol/L (22-26)
[2024-08-08 04:50] LABS: Blood Gas Allen Test POS; Blood Gas Operator Identificat JB; Oxygen Device NRB; PO2 FiO2 Ratio Arterial Blood 490; Potassium Level - ABG 3.6 mmol/L (3.5-5.0)
[2024-08-08 04:51] LABS: Arterial Blood Gas Hematocrit 41.6 % (42-52); Blood Gas Drawn By BISJE; Blood Gas Sample Site RIGHT RADIAL; Blood Gas Sample Type ARTERIAL
[2024-08-08 04:52] LABS: HGB O2 Sat 98.1 % (95-100); Ionized Calcium Level - ABG 1.1 mmol/L (1.1-1.4); Total Hemoglobin 13.6 g/dL (14-18)
[2024-08-08 04:53] LABS: Carboxyhemoglobin 0.6 %THgb (0.4-20.1); Methemoglobin 1.4 % (0.4-1.5)
[2024-08-08 05:00] LABS: Basophils % 0.2 %; Eosinophils # 0.1 10^3/uL (0.0-0.8); Eosinophils % 0.7 %; Hematocrit 42.5 % (37-53); Lymphocytes # 0.8 10^3/uL (0.8-4.8); Lymphocytes % 8.6 %; Mean Corpuscular HGB Conc 33.4 g/dL (30-55); Mean Corpuscular Hemoglobin 30.3 pg (27-33); Mean Corpuscular Volume 90.8 fl (82-101); Mean Platelet Volume 10.2 fL (7.4-10.4); Monocytes # 0.5 10^3/uL (0.2-0.9); Monocytes % 5.5 %; Neutrophils # 7.41 10^3/uL (1.8-7.7); Neutrophils % 84.5 %; Nucleated Red Blood Cells % 0 %; Platelet Count 143 10^3/cmm (157-399); Red Blood Count 4.68 10^6/uL (3.85-5.65); Red Cell Distribution Width 12.6 % (12.1-15.1); White Blood Count 8.76 10^3/uL (3.29-11.43)
[2024-08-08 05:16] LABS: Anion Gap 13.1 (5-19); Blood Urea Nitrogen 11 mg/dL (6-20); Calcium 8.3 mg/dL (8.5-10.5); Carbon Dioxide 26 mmol/L (22-29); Chloride 105 mmol/L (98-107); Creatinine Clr Calc Pharmacy 140.8167; Glomerular Filtration Rate 115.1 mL/min (90-130); Glucose 81 mg/dL (65-115); Osmolality Calculated 288 mOsm/kg (285-295); Potassium 4.1 mmol/L (3.5-5.1); Sodium 140 mmol/L (136-145)
[2024-08-08] MEDS: chlordiazePOXIDE 10 mg Capsule PO ×3 (09:45→20:38)
--- NOTE | 2024-08-08 10:51 | PC.NURSE ---
Rm from the Poison control center, closed patients case. Cleared.
--- NOTE | 2024-08-08 11:18 | PC.NURSE ---
Report was called to [facility]. Security helped transport the patient. All IVs were discontinued and belongings were taken with the patient. Patient was stable.
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
--- NOTE | 2024-08-08 13:46 | PC.NURSE ---
PT ARRIVED TO THE EMERGENCY ROOM AFTER INTENTIONAL OVERDOSE AND SHUT HIMSELF IN HIS GARAGE WITH THE LAWNMOWER RUNNING. PT WAS INITIALLY ADMITTED TO THE ICU FOR OBSERVATION DUE TO OVERDOSE AND CARBON MONOXIDE POISONING. PT HAD RECENTLY BEEN DISCHARGED FROM THE NPU. UPON ADMIT TO THE NPU PT STATES IM NOT SUICIDAL, IM JUST MAD THAT IM HERE AGAIN. PT STATED I CANNOT KILL MYSELF HERE SO IM NOT EVEN THINKING ABOUT IT. THAT IS WHY IM IN SUCH A GOOD MOOD NOW. PT WAS COOPERATIVE WITH ASSESSMENT. PT CURRENT NEEDS ARE MET AT THIS TIME.
--- NOTE | 2024-08-08 16:28 | P.PN_ITS ---
Subjective 2 Subjective: Patient was seen this morning, he is alert oriented x 3, following commands, no headache, no blurry vision, no nausea, no vomiting, no chest pain, he does have a mild tremor, denies any visual auditory or tactile hallucination, Vitals/I&O/Wt Last Vital Signs Temp 98 F 08/08/24 15:28 Pulse 73 08/08/24 15:28 Resp 16 08/08/24 15:28 BP 117/75 08/08/24 15:28 Pulse Ox 96 08/08/24 15:28 O2 Del Method Room Air 08/08/24 15:28 O2 Flow Rate 15 08/07/24 22:00 08/08/24 08/08/24 08/08/24 06:59 14:59 22:59 Intake Total 1011.2 / 1108.7 Output Total 800 / 1150 450 / 450 Balance 211.2 / -41.3 -450 / -450 Weight last 48 hrs Weight 75.296 kg Weight 75.5 kg Weight 75 kg Weight 72.575 kg Physical Exam 2 Const: COMMON NORMALS: no acute distress and patient oriented x3 Resp: COMMON NORMALS: normal respiratory effort, No retractions, No use of accessory muscles and clear to auscultation bilaterally AUSCULTATION: clear to auscultation bilaterally Cardio: COMMON NORMALS: regular rate, regular rhythm, S1 normal heart sound present and S2 normal heart sound present RATE: regular rate RHYTHM: r egular rhythm HEART SOUNDS: S1 normal heart sound present and S2 normal heart sound present GI: COMMON NORMALS: Normal to inspection, nondistended, normoactive bowel sounds present and non-tender Extremity: COMMON NORMALS: no pedal edema Neuro: COMMON NORMALS: patient oriented x3 Psych: COMMON NORMALS: mental status grossly normal Data 08/08/24 04:34 08/08/24 04:34 A&P Assessment and plan (1) Alcohol intoxication: (2) Carbon monoxide poisoning: (3) Depression with suicidal ideation: (4) Intentional overdose: (5) Suicide attempt by multiple drug overdose: Qualifiers: Encounter type: initial encounter Qualified Code(s): T50.912A - Poisoning by multiple unspecified drugs, medicaments and biological substances, intentional self-harm, initial encounter Plan Carbon monoxide poisoning -Alert oriented x 3, following all commands -Resolved Intentional drug overdose ? Reports taking trazodone, Effexor, quantity unknown Suicide attempt -Suicide precautions ?96-hour hold Alcohol abuse, alcohol intoxication -Reports drinking 6 beers, 2 shots before coming to the hospital ? CIWA protocol ? Due to tremors start Librium 10 mg every 6 hours, will wean over the next few days Full code Moved to n.p.u Attestations 2 Medical Necessity Statement*: Patient requires hospitalization for alcohol abuse, intoxication, withdrawal, suicide attempt Diagnoses Alcohol intoxication F10.929 Carbon monoxide poisoning T58.91XA Depression with suicidal ideation F32.A; R45.851 Intentional overdose T50.902A Suicide attempt by multiple drug overdose T50.912A Encounter type: initial encounter
[2024-08-08] MEDS: trazodone 50 mg Tablet PO (20:37)
[2024-08-09] VITALS (8 sets, daily range): BP systolic 117–134; BP diastolic 73–86; PULSE 60–80; RESP 16–18; TEMP 36.5–37.4; O2SAT 99–100
--- NOTE | 2024-08-09 00:26 | PC.NURSE ---
pt sleeping very well not wanting to wake up
[2024-08-09] MEDS: thiamine 100 mg Tablet PO (08:19)
[2024-08-09] MEDS: chlordiazePOXIDE 10 mg Capsule PO (08:20)
[2024-08-09] MEDS: multivitamin therapeutic Tablet 1 TAB PO (08:20)
[2024-08-09] MEDS: folic acid 1 mg Tablet PO (08:20)
--- NOTE | 2024-08-09 14:37 | P.NPUPN_ITS ---
Subjective NPU 2 Subjective: 28-year-old male with borderline persona lity traits and major depressive disorder severe admitted with overdose on medications with attempt to cause CO poisoning in garage with motor vehicle. Patient continued to endorse depressed mood. He continued to report no triggers associated with feeling suicidal. He reports that even prior to the use of alcohol after discharge he had felt depressed and only began drinking after he had begun the process of attempting to harm himself. He had been able to attend groups. He had reported previous compliance to [employer] and stated that he had not spoken to his yet. He remained motivated to consider therapy at this time. He had continued to endorse hopelessness. He reported some struggles with concentration. He had reported some difficulties falling asleep. Mental Status Exam 2 MSE Comments: Patient is a casually dressed healthy white male with adequate hygiene and normal gait. There was no evidence of any abnormal involuntary motor movements, tics, or tremors appreciated. His speech was normal in regards to rate, rhythm, and prosody. He endorsed suicidal ideation with a plan to kill himself by carbon oxide poisoning in the car. Mood was described as depressed. Affect: flat and mood congruent. He denied any homicidal ideation. He did not appear to be responding to internal stimuli. There was no clear evidence of delusional thinking. There were healed scars noted on his hand and wrist. His thought process was linear,logical and goal-directed. He was alert and oriented to person place time and situation. His attention span appeared fair. His recent remote memory were grossly intact. He was alert and oriented person, place, time, and situation. His insight was poor. His judgment was poor. His impulse control appeared poor as well. Vitals/I&O/Wt Last Vital Signs Temp 98.5 F 08/09/24 12:00 Pulse 68 08/09/24 12:00 Resp 17 08/09/24 12:00 BP 134/82 08/09/24 12:00 Pulse Ox 99 08/09/24 12:00 O2 Del Method Room Air 08/09/24 08:00 O2 Flow Rate 15 08/07/24 22:00 08/08/24 08/09/24 08/09/24 22:59 06:59 14:59 Output Total 450 / 900 Balance -450 / -900 Weight last 48 hrs Weight 75.296 kg Weight 75.5 kg Weight 75 kg Weight 72.575 kg Data NPU 08/08/24 04:34 08/08/24 04:34 A&P Assessment and plan (1) Major depressive disorder, recurrent severe without psychotic features: (2) Alcohol abuse: (3) Borderline personality disorder: Plan 28-year-old male history of self-injurious behavior, dysthymia, and alcohol abuse admitted after overdose on alcohol and multiple unknown medications after discharge less than 24 hours prior to this admission. #1.? Engage patient in individual milieu and group therapy. #2?? Recommend sober living treatment at the highest level of care to which the patient is willing to commit #3??? CIWA for alcohol withdrawal #4?? TO-15 minute checks? #5?? Will attempt to gather collateral information #6 Will restart effexor xr in 1-2 days. Consider ECT given level of depression and suicidality that appears unchanged. Involuntary Hold Information 2 96 Hour Hold: 96 Hour Involuntary Admission: Yes 96 Hour Hold Ending Date: 08/13/24 96 Hour Hold Ending Time: 16:04 Other Hold: Hold End Date: 08/07/24 Attestations NPU 2 Medical Necessity Statement*: Inpatient hospitalization is medically necessary and deemed to ?be ?the clinically appropriate intervention ?at this time.? We will monitor/initiate medications and make changes as indicated.? The patient?s likely length of stay 10-14 days. Coding Level of Care Code Acute Code for Chg Fwd Diagnoses Major depressive disorder, recurrent severe without psychotic features F33.2 Alcohol abuse F10.10 Borderline personality disorder F60.3
[2024-08-09] MEDS: trazodone 50 mg Tablet PO (20:57)
[2024-08-10 03:53] VITALS: BP 109/66; PULSE 51; RESP 16; TEMP 36.7; O2SAT 100
[2024-08-10 07:45] VITALS: BP 114/70; PULSE 56; RESP 18; TEMP 36.8; O2SAT 99
[2024-08-10] MEDS: multivitamin therapeutic Tablet 1 TAB PO (09:00)
[2024-08-10] MEDS: venlafaxine ER (24HR) 75 mg Capsule PO (09:00)
[2024-08-10] MEDS: folic acid 1 mg Tablet PO (09:00)
[2024-08-10] MEDS: thiamine 100 mg Tablet PO (09:01)
[2024-08-10 11:43] VITALS: BP 120/77; PULSE 89; RESP 16; TEMP 36.7; O2SAT 100
--- NOTE | 2024-08-10 15:16 | P.NPUPN_ITS ---
Subjective NPU 2 Subjective: Patient presented today reporting that he feels like he is doing okay. He does identify that this suicidality he has no clear nidus for. We discussed the conversation and planning that he had Dr. Barreto had undertaken surrounding transfer and possible ECT. He reports still being open to that as his behaviors and lethality portend a likely long admission with reports of limited success in the past with typical/standard interventions. He denied any side effects to the medication. Mental Status Exam 2 MSE Comments: Patient is a casually dressed healthy white male with adequate hygiene and normal gait. There was no evidence of any abnormal involuntary motor movements, tics, or tremors appreciated. His speech was normal in regards to rate, rhythm, and prosody. He endorsed suicidal ideation with a plan to kill himself by carbon oxide poisoning in the car. Mood was described as depressed. Affect: flat and mood congruent. He denied any homicidal ideation. He did not appear to be responding to internal stimuli. There was no clear evidence of delusional thinking. There were healed scars noted on his hand and wrist. His thought process was linear,logical and goal-directed. He was alert and oriented to person place time and situation. His attention span appeared fair. His recent remote memory were grossly intact. He was alert and oriented person, place, time, and situation. His insight was poor. His judgment was poor. His impulse control appeared poor as well. Vitals/I&O/Wt Last Vital Signs Temp 98.1 F 08/10/24 11:43 Pulse 89 08/10/24 11:43 Resp 16 08/10/24 11:43 BP 120/77 08/10/24 11:43 Pulse Ox 100 08/10/24 11:43 O2 Del Method Room Air 08/10/24 11:43 O2 Flow Rate 15 08/07/24 22:00 Data NPU 08/08/24 04:34 08/08/24 04:34 A&P Assessment and plan (1) Major depressive disorder, recurrent severe without psychotic features: (2) Alcohol abuse: (3) Borderline personality disorder: Plan 28-year-old male history of self-injurious behavior, dysthymia, and alcohol abuse admitted after overdose on alcohol and multiple unknown medications after discharge less than 24 hours prior to this admission. 1. Engage patient in individual milieu and group therapy. 2. Recommend sober living treatment at the highest level of care to which the patient is willing to commit 3. CIWA for alcohol withdrawal 4. TO-15 minute checks? 5. Will attempt to gather collateral information 6. Will restart effexor xr in 1-2 days. Consider ECT given level of depression and suicidality that appears unchanged. Involuntary Hold Information 2 96 Hour Hold: 96 Hour Involuntary Admission: Yes 96 Hour Hold Ending Date: 08/13/24 96 Hour Hold Ending Time: 16:04 Other Hold: Hold End Date: 08/07/24 Attestations NPU 2 Medical Necessity Statement*: Inpatient hospitalization is medically necessary and deemed to ?be ?the clinically appropriate intervention ?at this time.? We will monitor/initiate medications and make changes as indicated.? The patient?s likely length of stay 10-14 days. But possible discharge to facility to consider ECT. Coding Level of Care Code Acute Code for Chg Fwd Diagnoses Major depressive disorder, recurrent severe without psychotic features F33.2 Alcohol abuse F10.10 Borderline personality disorder F60.3
[2024-08-10 16:00] VITALS: BP 118/64; PULSE 65; RESP 18; TEMP 36.8; O2SAT 99
[2024-08-10 20:00] VITALS: BP 119/76; PULSE 68; RESP 17; TEMP 36.7; O2SAT 99
[2024-08-11] VITALS: BP 114/67; PULSE 71; RESP 18; TEMP 36.6; O2SAT 99
[2024-08-11 04:00] VITALS: BP 111/69; PULSE 66; RESP 17; TEMP 36.6; O2SAT 99
[2024-08-11 07:37] VITALS: BP 116/72; PULSE 60; RESP 16; TEMP 36.6; O2SAT 100
--- NOTE | 2024-08-11 08:24 | P.NPUPN_ITS ---
Subjective NPU 2 Subjective: Patient presented today reporting that things are unchanged. He continues to struggle with his inability to avoid lethality and his inability to keep himself safe. He continued to be open to the possibility of us working with the social work team on Tuesday to explore transfer to a facility that can do ECT. Otherwise we discussed the likelihood of restarting his Effexor XR tomorrow. Mental Status Exam 2 MSE Comments: Patient is a casually dressed healthy white male with adequate hygiene and normal gait. There was no evidence of any abnormal involuntary motor movements, tics, or tremors appreciated. His speech was normal in regards to rate, rhythm, and prosody. He endorsed suicidal ideation with a plan to kill himself by carbon oxide poisoning in the car. Mood was described as depressed. Affect: flat and mood congruent. He denied any homicidal ideation. He did not appear to be responding to internal stimuli. There was no clear evidence of delusional thinking. There were healed scars noted on his hand and wrist. His thought process was linear,logical and goal-directed. He was alert and oriented to person place time and situation. His attention span appeared fair. His recent remote memory were grossly intact. He was alert and oriented person, place, time, and situation. His insight was poor. His judgment was poor. His impulse control appeared poor as well. Vitals/I&O/Wt Last Vital Signs Temp 97.5 F L 08/11/24 20:46 Pulse 64 08/11/24 20:46 Resp 16 08/11/24 20:46 BP 125/78 08/11/24 20:46 Pulse Ox 100 08/11/24 20:46 O2 Del Method Room Air 08/11/24 14:00 O2 Flow Rate 15 08/07/24 22:00 Data NPU 08/08/24 04:34 08/08/24 04:34 A&P Assessment and plan (1) Major depressive disorder, recurrent severe without psychotic features: (2) Alcohol abuse: (3) Borderline personality disorder: Plan 28-year-old male history of self-injurious behavior, dysthymia, and alcohol abuse admitted after overdose on alcohol and multiple unknown medications after discharge less than 24 hours prior to this admission. 1. Engage patient in individual milieu and group therapy. 2. Recommend sober living treatment at the highest level of care to which the patient is willing to commit 3. CIWA for alcohol withdrawal 4. TO-15 minute checks? 5. Will attempt to gather collateral information 6. Will restart effexor xr in 1-2 days. Consider ECT given level of depression and suicidality that appears unchanged. Involuntary Hold Information 2 96 Hour Hold: 96 Hour Involuntary Admission: Yes 96 Hour Hold Ending Date: 08/13/24 96 Hour Hold Ending Time: 16:04 Other Hold: Hold End Date: 08/07/24 Attestations NPU 2 Medical Necessity Statement*: Inpatient hospitalization is medically necessary and deemed to ?be ?the clinically appropriate intervention ?at this time.? We will monitor/initiate medications and make changes as indicated.? The patient?s likely length of stay 10-14 days. But possible discharge to facility to consider ECT. Coding Level of Care Code Acute Code for g Fwd Diagnoses Major depressive disorder, recurrent severe without psychotic features F33.2 Alcohol abuse F10.10 Borderline personality disorder F60.3
[2024-08-11] MEDS: venlafaxine ER (24HR) 75 mg Capsule PO (08:29)
[2024-08-11] MEDS: folic acid 1 mg Tablet PO (08:29)
[2024-08-11] MEDS: multivitamin therapeutic Tablet 1 TAB PO (08:29)
[2024-08-11] MEDS: thiamine 100 mg Tablet PO (08:29)
[2024-08-11 14:00] VITALS: BP 116/68; PULSE 84; RESP 16; TEMP 37; O2SAT 100
[2024-08-11 20:46] VITALS: BP 125/78; PULSE 64; RESP 16; TEMP 36.4; O2SAT 100
[2024-08-11] MEDS: trazodone 50 mg Tablet PO (21:30)
[2024-08-12 01:14] LABS: Carboxyhemoglobin, Blood 6 %TOTAL HGB
[2024-08-12 05:57] VITALS: BP 112/77; PULSE 65; RESP 18; TEMP 36.8; O2SAT 99
--- NOTE | 2024-08-12 08:02 | PC.NURSE ---
The patient is in room, sitting in bed. The patient denies si/hi/avh upon assessment however endorses high anxiety and depression. The patient stated that yesterday his had called and said she was moving back to [place] because she could not deal with him anymore and told him not to contact her anymore. The patient is very distressed over this and voiced that he was hoping to leave very soon, because he thought maybe he could fix their relationship. The patient stated that he did not want to talk about it anymore and that he was going to get some more rest and laid back down in bed. RR even and unlabored.
--- NOTE | 2024-08-12 09:18 | PC.NURSE ---
The patient refused AM medications, looking visibly upset and stated From now on, I am refusing all treatments or monitoring. When educating the patient about taking the medications and adhering to treatment, the patient cut this nurse off and stated I don't care and I'm not doing it, because I don't feel it necessary. The patient then turned away from this nurse and laid back in bed, RR even and unlabored.
[2024-08-12 13:44] VITALS: RESP 16
--- NOTE | 2024-08-12 13:44 | PC.NURSE ---
Patient refused 1400 vital signs and told the BILINGUAL TEACHER that he will be refusing everything offered to him here. RR16
--- NOTE | 2024-08-12 15:08 | P.NPUPN_ITS ---
Subjective NPU 2 Subjective: Patient presented today reporting that he is feeling like he needs to leave. He was actually quite annoyed that he was not discharged after our conversation. He reports that his had contacted him and described the likelihood that she would be leaving him. He now reports that this is a catalyst for him to fight for her and not necessarily continue on this path to suicidal behavior. He could not however answer the question of what would he do if we discharged him and his attempts to lobby his to stay failed. We discussed significant concern about his lethality and the likelihood of filing a 21-day hold tomorrow. He reports that he will refuse all medication and all treatment if not discharged. Mental Status Exam 2 MSE Comments: Patient is a casually dressed healthy white male with adequate hygiene and normal gait. There was no evidence of any abnormal involuntary motor movements, tics, or tremors appreciated. His speech was normal in regards to rate, rhythm, and prosody. He endorsed suicidal ideation with a plan to kill himself by carbon oxide poisoning in the car. Mood was described as depressed. Affect: flat and mood congruent. He denied any homicidal ideation. He did not appear to be responding to internal stimuli. There was no clear evidence of delusional thinking. There were healed scars noted on his hand and wrist. His thought process was linear,logical and goal-directed. He was alert and oriented to person place time and situation. His attention span appeared fair. His recent remote memory were grossly intact. He was alert and oriented person, place, time, and situation. His insight was poor. His judgment was poor. His impulse control appeared poor as well. Vitals/I&O/Wt Last Vital Signs Temp 98.2 F 08/12/24 05:57 Pulse 65 08/12/24 05:57 Resp 16 08/12/24 13:44 BP 112/77 08/12/24 05:57 Pulse Ox 99 08/12/24 05:57 O2 Del Method Room Air 08/11/24 14:00 O2 Flow Rate 15 08/07/24 22:00 Weight last 48 hrs Weight 73.936 kg Weight 73.936 kg Data NPU 08/08/24 04:34 08/08/24 04:34 A&P Assessment and plan (1) Major depressive disorder, recurrent severe without psychotic features: (2) Alcohol abuse: (3) Borderline personality disorder: Plan 28-year-old male history of self-injurious behavior, dysthymia, and alcohol abuse admitted after overdose on alcohol and multiple unknown medications after discharge less than 24 hours prior to this admission. 1. Engage patient in individual milieu and group therapy. 2. Recommend sober living treatment at the highest level of care to which the patient is willing to commit 3. CIWA for alcohol withdrawal 4. TO-15 minute checks? 5. Will attempt to gather collateral information 6. Will restart effexor xr in 1-2 days. Consider ECT given level of depression and suicidality that appears unchanged. Likely filed 21-day hold paperwork tomorrow. Involuntary Hold Information 2 96 Hour Hold: 96 Hour Involuntary Admission: Yes 96 Hour Hold Ending Date: 08/13/24 96 Hour Hold Ending Time: 16:04 Other Hold: Hold End Date: 08/07/24 Attestations NPU 2 Medical Necessity Statement*: Inpatient hospitalization is medically necessary and deemed to ?be ?the clinically appropriate intervention ?at this time.? We will monitor/initiate medications and make changes as indicated.? The patient?s likely length of stay 10-14 days. But possible discharge to facility to consider ECT. Coding Level of Care Code Acute Code for [facility] Fwd Diagnoses Major depressive disorder, recurrent severe without psychotic features F33.2 Alcohol abuse F10.10 Borderline personality disorder F60.3
[2024-08-12 20:50] VITALS: RESP 18
[2024-08-13 06:00] VITALS: RESP 16
--- NOTE | 2024-08-13 13:24 | PC.NURSE ---
Morning assessment During morning assessment, patient said to this nurse, I prefer to not be monitored when this nurse attempted to gather information about patient's current thought processes. This nurse told patient that not cooperating, refusing to eat, refusing to take medications does not make it look as though he is appropriate to be discharged. Patient verbalized understanding, stating I'm gonna be here a while.
--- NOTE | 2024-08-13 13:27 | PC.NURSE ---
Patient took this nurse aside. Patient said that he needs to get out of the unit, that this place is making me worse. Patient said that he is moving out right at this moment and he wants to get out so he can try to fix things. Patient said that she has never left or threatened to leave before, but that she states she is tired of him going in and out of the psych units. Patient said that once she leaves, he will be all alone in [place], that all of his family is in [place]. This nurse talked to patient about, despite him not wanting to be on the unit, that he is at least safe while here. Patient said that regardless of when he is discharged, be it today or in 21 days, he is still at risk of harming himself. This nurse said that maybe while he is here we can work on changes his perspective/outlook on things. Patient said that this won't matter because either way, his is leaving him and he will be alone. This nurse listened to patient and talked with patient for a short while until patient said I think I'm done talking, I want to lay down now. This nurse assured patient that staff are here for him for any and all needs. Understanding verbalized.
--- NOTE | 2024-08-13 13:47 | P.NPUPN_ITS ---
Subjective NPU 2 Subjective: Patient presented today reporting that he wanted to be discharged. He denied any issues other than needing to go home and try to fix the relationship with his . He offered no answers to why we should trust that he will be safe. He was somewhat threatening and ultimately was demanding to be discharged or he would on a hunger strike and quit taking his medications. He has refused vital signs etc. now that he is not being discharged. We discussed that we would be filing for 21-day hold. Mental Status Exam 2 MSE Comments: Patient is a casually dressed healthy white male with adequate hygiene and normal gait. There was no evidence of any abnormal involuntary motor movements, tics, or tremors appreciated. His speech was normal in regards to rate, rhythm, and prosody. He endorsed suicidal ideation with a plan to kill himself by carbon oxide poisoning in the car. Mood was described as irritated about being here. Affect: flat and mood congruent. He denied any homicidal ideation. He did not appear to be responding to internal stimuli. There was no clear evidence of delusional thinking. There were healed scars noted on his hand and wrist. His thought process was linear,logical and goal-directed. He was alert and oriented to person place time and situation. His attention span appeared fair. His recent remote memory were grossly intact. He was alert and oriented person, place, time, and situation. His insight was poor. His judgment was poor. His impulse control appeared poor as well. Vitals/I&O/Wt Last Vital Signs Temp 98.2 F 08/12/24 05:57 Pulse 65 08/12/24 05:57 Resp 16 08/13/24 06:00 BP 112/77 08/12/24 05:57 Pulse Ox 99 08/12/24 05:57 O2 Del Method Room Air 08/11/24 14:00 O2 Flow Rate 15 08/07/24 22:00 Weight last 48 hrs Weight 73.936 kg Weight 73.936 kg Data NPU 08/08/24 04:34 08/08/24 04:34 A&P Assessment and plan (1) Major depressive disorder, recurrent severe without psychotic features: (2) Alcohol abuse: (3) Borderline personality disorder: Plan 28-year-old male history of self-injurious behavior, dysthymia, and alcohol abuse admitted after overdose on alcohol and multiple unknown medications after discharge less than 24 hours prior to this admission. 1. Engage patient in individual milieu and group therapy. 2. Recommend sober living treatment at the highest level of care to which the patient is willing to commit 3. CIWA for alcohol withdrawal 4. TO-15 minute checks? 5. Will attempt to gather collateral information 6. Patient refusing all medication and at times not eating or drinking but demanding discharge. Filed 21-day hold paperwork today. Involuntary Hold Information 2 96 Hour Hold: 96 Hour Involuntary Admission: Yes 96 Hour Hold Ending Date: 08/13/24 96 Hour Hold Ending Time: 16:04 Other Hold: Hold End Date: 08/07/24 Attestations NPU 2 Medical Necessity Statement*: Inpatient hospitalization is medically necessary and deemed to ?be ?the clinically appropriate intervention ?at this time.? We will monitor/initiate medications and make changes as indicated.? The patient?s likely length of stay 10-14 days. But possible discharge to facility to consider ECT. Coding Level of Care Code Acute Code for [facility] Fwd Diagnoses Major depressive disorder, recurrent severe without psychotic features F33.2 Alcohol abuse F10.10 Borderline personality disorder F60.3
--- NOTE | 2024-08-13 18:21 | PC.NURSE ---
Threat Patient's called and said that patient is wanting her to come sign him out. This nurse educated patient on how the process of an involuntary hold works, 96-hour hold and 21-day hold. Patient said that my niceness is at its final thread. I am going to get out of here no matter what I have to do. This nurse notified Dr. Juarez who told this nurse to notify security. Nicolás with security notified of the verbal threat. Charge nurse Geena made aware. Plan to [facility].
--- NOTE | 2024-08-13 19:37 | PC.NURSE ---
pt ref vs resp 16 pt ref all care charge notified
--- NOTE | 2024-08-14 01:04 | PC.NURSE ---
Pt states that he is no longer answering questions from nursing staff. This nurse informed patient that we still had to ask him whether he wants to answer or not. When asked if the patient was having any thoughts of wanting to hurt himself or anyone else he stated next question. When asked if the patient was having auditory or visual hallucinations he did not respond back. When asked if the patient would like anything to help him sleep he stated no im good. Pt refused to let this nurse listen to his heart and lungs. Pt has no complaints at this time. Behavioral monitoring continues.
--- NOTE | 2024-08-14 06:46 | PC.NURSE ---
pt ref vs resp18 charge notified
--- NOTE | 2024-08-14 08:18 | PC.NURSE ---
Patient initially talked with this RN and did endorse being depressed and sleeping well. However, upon further assessment he replied, I'm not answering anymore questions, and refused his physical assessment as well. Patient refusing his medications and refusing to eat or drink.
[2024-08-14 14:00] VITALS: RESP 16
--- NOTE | 2024-08-14 14:05 | PC.NURSE ---
Patient resting in bed. No distress noted and respirations visualized. Patient continues to refuse any and all care.
--- NOTE | 2024-08-14 14:10 | PC.NURSE ---
The patient refused vital signs, RR even and unlabored.
--- NOTE | 2024-08-14 14:54 | P.NPUPN_ITS ---
Subjective NPU 2 Subjective: Patient presented today reporting that he is feeling more optimistic about his situation. He understands some of the issues that he has been trying to avoid and identified that the treatment team is a throbbing but that he needs to take a different approach to his sobriety and doing so things will improve and some of the complex outside the hospital would likely resolve. We discussed the 21- day hold paperwork being submitted and going to work with him on a viable plan. He denied any side effects of medication. Mental Status Exam 2 MSE Comments: Is a well-nourished well-developed white male with hospital scrubs with adequate grooming and improving eye contact. No abnormal movements except for psychomotor retardation. Cooperative with exam and mild to moderate distress. His speech was more normal in regards to rate, rhythm, and prosody. Mood was described as feeling somewhat better after doing some soul searching. Affect: Somewhat but mood congruent. Thought process organized. Thought content: He denied any homicidal ideation or current suicidal ideation. There was no clear evidence of delusional thinking. There were healed scars noted on his hand and wrist. He denied auditory or visual hallucinations. Attention and concentration were improving and memory appeared more reliable but none were formally tested. He was alert and oriented to person place time and situation. His insight and judgment appeared improving. His impulse control appeared seem to be improving as well.. Vitals/I&O/Wt Last Vital Signs Temp 98.2 F 08/12/24 05:57 Pulse 65 08/12/24 05:57 Resp 16 08/14/24 14:00 BP 112/77 08/12/24 05:57 Pulse Ox 99 08/12/24 05:57 O2 Del Method Room Air 08/11/24 14:00 O2 Flow Rate 15 08/07/24 22:00 Data NPU 08/08/24 04:34 08/08/24 04:34 A&P Assessment and plan (1) Major depressive disorder, recurrent severe without psychotic features: (2) Alcohol abuse: (3) Borderline personality disorder: Plan 28-year-old male history of self-injurious behavior, dysthymia, and alcohol abuse admitted after overdose on alcohol and multiple unknown medications after discharge less than 24 hours prior to this admission. 1. Engage patient in individual milieu and group therapy. 2. Recommend sober living treatment at the highest level of care to which the patient is willing to commit 3. CIWA for alcohol withdrawal 4. TO-15 minute checks? 5. Will attempt to gather collateral information 6. Patient refusing all medication and at times not eating or drinking but demanding discharge. 21-day hold paperwork filed. Patient was apologetic about his irritability and refusal of treatment. We discussed working on a treatment plan and had appropriate medications so that we might feel more secure about discharge. Involuntary Hold Information 2 96 Hour Hold: 96 Hour Involuntary Admission: Yes 96 Hour Hold Ending Date: 08/13/24 96 Hour Hold Ending Time: 16:04 Other Hold: Hold End Date: 08/07/24 Attestations NPU 2 Medical Necessity Statement*: Inpatient hospitalization is medically necessary and deemed to ?be ?the clinically appropriate intervention ?at this time.? We will monitor/initiate medications and make changes as indicated.? The patient?s likely length of stay 7 to 10 days. Coding Level of Care Code Acute Code for [facility] Fwd Diagnoses Major depressive disorder, recurrent severe without psychotic features F33.2 Alcohol abuse F10.10 Borderline personality disorder F60.3
[2024-08-14 20:22] VITALS: BP 158/88; PULSE 87; RESP 18; TEMP 36.8; O2SAT 95
[2024-08-15 06:00] VITALS: BP 129/76; PULSE 65; RESP 17; TEMP 36.6; O2SAT 99
[2024-08-15] MEDS: venlafaxine ER (24HR) 75 mg Capsule PO (08:03)
[2024-08-15] MEDS: folic acid 1 mg Tablet PO (08:03)
[2024-08-15] MEDS: multivitamin therapeutic Tablet 1 TAB PO (08:03)
[2024-08-15] MEDS: thiamine 100 mg Tablet PO (08:03)
--- NOTE | 2024-08-15 11:44 | P.NPUPN_ITS ---
Subjective NPU 2 Subjective: Patient presented today reporting that he is feeling okay. He endorsed continuing to we think his situation and how to make improvements. Continues to endorse now being open to outpatient rehab but not feeling capable of doing inpatient rehab. He reports he spoke to his mother and she was very encouraging having been in his situation before. He denied any side effects to the medication. Mental Status Exam 2 MSE Comments: Is a well-nourished well-developed white male with hospital scrubs with adequate grooming and improving eye contact. No abnormal movements except for psychomotor retardation. Cooperative with exam in no acute distress. His speech was more normal in regards to rate, rhythm, and prosody. Mood was described as feeling somewhat better after doing some soul searching. Affect: Congruent. Thought process organized. Thought content: He denied any homicidal ideation or current suicidal ideation. There was no clear evidence of delusional thinking. There were healed scars noted on his hand and wrist. He denied auditory or visual hallucinations. Attention and concentration were improving and memory appeared more reliable but none were formally tested. He was alert and oriented to person place time and situation. His insight and judgment appeared improving. His impulse control appeared seem to be improving as well.. Vitals/I&O/Wt Last Vital Signs Temp 97.8 F 08/15/24 06:00 Pulse 65 08/15/24 06:00 Resp 17 08/15/24 06:00 BP 129/76 08/15/24 06:00 Pulse Ox 99 08/15/24 06:00 O2 Del Method Room Air 08/15/24 06:00 O2 Flow Rate 15 08/07/24 22:00 Data NPU 08/08/24 04:34 08/08/24 04:34 A&P Assessment and plan (1) Major depressive disorder, recurrent severe without psychotic features: (2) Alcohol abuse: (3) Borderline personality disorder: Plan 28-year-old male history of self-injurious behavior, dysthymia, and alcohol abuse admitted after overdose on alcohol and multiple unknown medications after discharge less than 24 hours prior to this admission. 1. Engage patient in individual milieu and group therapy. 2. Recommend sober living treatment at the highest level of care to which the patient is willing to commit 3. CIWA for alcohol withdrawal 4. TO-15 minute checks? 5. Will attempt to gather collateral information 6. Patient resumed medication and we will consider the possibility of increasing Effexor XR. 21-day hold paperwork filed. Patient was apologetic about his irritability and refusal of treatment. We discussed working on a treatment plan and had appropriate medications so that we might feel more secure about discharge. Involuntary Hold Information 2 96 Hour Hold: 96 Hour Involuntary Admission: Yes 96 Hour Hold Ending Date: 08/13/24 96 Hour Hold Ending Time: 16:04 Other Hold: Hold End Date: 08/07/24 Attestations NPU 2 Medical Necessity Statement*: Inpatient hospitalization is medically necessary and?the clinically appropriate intervention ?at this time.? We will monitor/initiate medications and make changes as indicated.? The patient?s likely length of stay 4-6 days. Coding Level of Care Code Acute Code for g Fwd Diagnoses Major depressive disorder, recurrent severe without psychotic features F33.2 Alcohol abuse F10.10 Borderline personality disorder F60.3
[2024-08-15 14:00] VITALS: BP 136/93; PULSE 86; RESP 16; TEMP 37; O2SAT 98
[2024-08-15 19:40] VITALS: BP 130/87; PULSE 71; RESP 18; TEMP 36.7; O2SAT 100
[2024-08-16 06:00] VITALS: BP 122/83; PULSE 70; RESP 16; TEMP 36.8; O2SAT 99
--- NOTE | 2024-08-16 06:49 | PC.NURSE ---
pt asked to shave pt was watched while he shaved
[2024-08-16] MEDS: thiamine 100 mg Tablet PO (09:38)
[2024-08-16] MEDS: folic acid 1 mg Tablet PO (09:38)
[2024-08-16] MEDS: multivitamin therapeutic Tablet 1 TAB PO (09:38)
[2024-08-16] MEDS: venlafaxine ER (24HR) 75 mg Capsule PO (09:38)
[2024-08-16 13:29] VITALS: BP 132/85; PULSE 91; RESP 18; TEMP 36.7; O2SAT 100
--- NOTE | 2024-08-16 16:54 | P.NPUPN_ITS ---
Subjective NPU 2 Subjective: Patient presents today reporting that things are going better. He denied major issues with self-loathing thoughts or being overwhelmed. He reports feeling very goal-directed about what he has to do next. He continues to report an inability to do inpatient rehab and needing to focus on outpatient rehab. We discussed the risks, benefits and alternatives of increasing his Effexor XR and he understood and agreed to proceed as is documented in this note. He denied any side effects to medication. Mental Status Exam 2 MSE Comments: Is a well-nourished well-developed white male with hospital scrubs with adequate grooming and improving eye contact. No abnormal movements except for psychomotor retardation. Cooperative with exam in no acute distress. His speech was more normal in regards to rate, rhythm, and prosody. Mood was described as feeling better after doing some soul searching. Affect: Congruent. Thought process organized. Thought content: He denied any homicidal ideation or current suicidal ideation. There was no clear evidence of delusional thinking. There were healed scars noted on his hand and wrist. He denied auditory or visual hallucinations. Attention and concentration were improving and memory appeared more reliable but none were formally tested. He was alert and oriented to person place time and situation. His insight and judgment appeared improving. His impulse control appeared seem to be improving as well.. Vitals/I&O/Wt Last Vital Signs Temp 98.1 F 08/16/24 13:29 Pulse 91 08/16/24 13:29 Resp 18 08/16/24 13:29 BP 132/85 08/16/24 13:29 Pulse Ox 100 08/16/24 13:29 O2 Del Method Room Air 08/15/24 14:00 O2 Flow Rate 15 08/07/24 22:00 Data NPU 08/08/24 04:34 08/08/24 04:34 A&P Assessment and plan (1) Major depressive disorder, recurrent severe without psychotic features: (2) Alcohol abuse: (3) Borderline personality disorder: Plan 28-year-old male history of self-injurious behavior, dysthymia, and alcohol abuse admitted after overdose on alcohol and multiple unknown medications after discharge less than 24 hours prior to this admission. 1. Engage patient in individual milieu and group therapy. 2. Recommend sober living treatment at the highest level of care to which the patient is willing to commit 3. CIWA for alcohol withdrawal 4. TO-15 minute checks? 5. Will attempt to gather collateral information 6. Patient resumed medication and we will consider the possibility of increasing Effexor XR. 21-day hold paperwork filed. Patient was apologetic about his irritability and refusal of treatment. We discussed working on a treatment plan and had appropriate medications so that we might feel more secure about discharge. Involuntary Hold Information 2 96 Hour Hold: 96 Hour Involuntary Admission: Yes 96 Hour Hold Ending Date: 08/13/24 96 Hour Hold Ending Time: 16:04 Other Hold: Hold End Date: 08/07/24 Attestations NPU 2 Medical Necessity Statement*: Inpatient hospitalization is medically necessary and?the clinically appropriate intervention ?at this time.? We will monitor/initiate medications and make changes as indicated.? The patient?s likely length of stay 4-5 days. Coding Level of Care Code Acute Code for g Fwd Diagnoses Major depressive disorder, recurrent severe without psychotic features F33.2 Alcohol abuse F10.10 Borderline personality disorder F60.3
[2024-08-16 19:56] VITALS: BP 132/83; PULSE 68; RESP 18; TEMP 37; O2SAT 100
[2024-08-17 06:00] VITALS: BP 114/69; PULSE 79; RESP 18; TEMP 36.8; O2SAT 98
--- NOTE | 2024-08-17 07:21 | P.NPUPN_ITS ---
Subjective NPU 2 Subjective: Patient presented today reporting that things are continuing to improve as far as his mindset. He seems to be continuing to be resistant to inpatient sober living services per staff reports and direct conversation. He discussed working with the social work team on discharge planning moving forward. We discussed consideration of discharge sometime next week. He denied any side effects to the medication and we discussed the risks, benefits and alternatives of increasing his Effexor XR and he understood and agreed to proceed as is documented in this note. Mental Status Exam 2 MSE Comments: Is a well-nourished well-developed white male with hospital scrubs with adequate grooming and improving eye contact. No abnormal movements except for psychomotor retardation. Cooperative with exam in no acute distress. His speech was more normal in regards to rate, rhythm, and prosody. Mood was described as feeling better after doing some soul searching. Affect: Congruent. Thought process organized. Thought content: He denied any homicidal ideation or current suicidal ideation. There was no clear evidence of delusional thinking. There were healed scars noted on his hand and wrist. He denied auditory or visual hallucinations. Attention and concentration were improving and memory appeared more reliable but none were formally tested. He was alert and oriented to person place time and situation. His insight and judgment appeared improving. His impulse control appeared seem to be improving as well.. Vitals/I&O/Wt Last Vital Signs Temp 98.3 F 08/17/24 06:00 Pulse 79 08/17/24 06:00 Resp 18 08/17/24 06:00 BP 114/69 08/17/24 06:00 Pulse Ox 98 08/17/24 06:00 O2 Del Method Room Air 08/15/24 14:00 Data NPU 08/08/24 04:34 08/08/24 04:34 A&P Assessment and plan (1) Major depressive disorder, recurrent severe without psychotic features: (2) Alcohol abuse: (3) Borderline personality disorder: Plan 28-year-old male history of self-injurious behavior, dysthymia, and alcohol abuse admitted after overdose on alcohol and multiple unknown medications after discharge less than 24 hours prior to this admission. 1. Engage patient in individual milieu and group therapy. 2. Recommend sober living treatment at the highest level of care to which the patient is willing to commit 3. CIWA for alcohol withdrawal 4. TO-15 minute checks? 5. Will attempt to gather collateral information 6. Patient resumed medication and we will consider the possibility of increasing Effexor XR. Increased Effexor XR to 112.5 mg daily. 7. 21-day hold paperwork filed. Patient was apologetic about his irritability and refusal of treatment. We discussed working on a treatment plan and had appropriate medications so that we might feel more secure about discharge. Involuntary Hold Information 2 96 Hour Hold: 96 Hour Involuntary Admission: Yes 96 Hour Hold Ending Date: 08/13/24 96 Hour Hold Ending Time: 16:04 Other Hold: Hold End Date: 08/07/24 Attestations NPU 2 Medical Necessity Statement*: Inpatient hospitalization is medically necessary and?the clinically appropriate intervention ?at this time.? We will monitor/initiate medications and make changes as indicated.? The patient?s likely length of stay 3-5 days. Coding Level of Care Code Acute Code for [facility] Fwd Diagnoses Major depressive disorder, recurrent severe without psychotic features F33.2 Alcohol abuse F10.10 Borderline personality disorder F60.3
[2024-08-17] MEDS: venlafaxine ER (24HR) 37.5 mg Capsule 112.5 MG PO (08:42)
[2024-08-17] MEDS: thiamine 100 mg Tablet PO (08:42)
[2024-08-17] MEDS: folic acid 1 mg Tablet PO (08:42)
[2024-08-17] MEDS: multivitamin therapeutic Tablet 1 TAB PO (08:42)
[2024-08-17 14:00] VITALS: BP 128/86; PULSE 77; RESP 18; TEMP 37.2; O2SAT 100
[2024-08-17 22:00] VITALS: BP 132/88; PULSE 79; RESP 18; TEMP 36.7; O2SAT 100
[2024-08-18 06:00] VITALS: BP 117/80; PULSE 88; RESP 17; TEMP 36.7; O2SAT 96
--- NOTE | 2024-08-18 07:28 | P.NPUPN_ITS ---
Subjective NPU 2 Subjective: Patient presented today reporting that he was doing okay. 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 We discussed that we did identified to her that that was part of our discussion. And that we would be trying to identify appropriate safety measures given his suicide attempts. He denied any side effects of the medication and reports that he is doing fairly well today. Mental Status Exam 2 MSE Comments: Is a well-nourished well-developed white male with hospital scrubs with adequate grooming and improving eye contact. No abnormal movements except for psychomotor retardation. Cooperative with exam in no acute distress. His speech was more normal in regards to rate, rhythm, and prosody. Mood was described as feeling better after doing some soul searching. Affect: Congruent. Thought process organized. Thought content: He denied any homicidal ideation or current suicidal ideation. There was no clear evidence of delusional thinking. There were healed scars noted on his hand and wrist. He denied auditory or visual hallucinations. Attention and concentration were improving and memory appeared more reliable but none were formally tested. He was alert and oriented to person place time and situation. His insight and judgment appeared improving. His impulse control appeared seem to be improving as well.. Vitals/I&O/Wt Last Vital Signs Temp 98.0 F 08/18/24 06:00 Pulse 88 08/18/24 06:00 Resp 17 08/18/24 06:00 BP 117/80 08/18/24 06:00 Pulse Ox 96 08/18/24 06:00 O2 Del Method Room Air 08/15/24 14:00 O2 Flow Rate 15 08/07/24 22:00 Data NPU 08/08/24 04:34 08/08/24 04:34 A&P Assessment and plan (1) Major depressive disorder, recurrent severe without psychotic features: (2) Alcohol abuse: (3) Borderline personality disorder: Plan 28-year-old male history of self-injurious behavior, dysthymia, and alcohol abuse admitted after overdose on alcohol and multiple unknown medications after discharge less than 24 hours prior to this admission. 1. Engage patient in individual milieu and group therapy. 2. Recommend sober living treatment at the highest level of care to which the patient is willing to commit 3. CIWA for alcohol withdrawal 4. TO-15 minute checks? 5. Will attempt to gather collateral information. Spoke to his and she identified concerns about post discharge. Later spoke to him about these concerns and he did produce a list of people including his parents and the fire and buyer assistant Training Engineer that we would be able to speak to prior to discharging. 6. Patient resumed medication and we will consider the possibility of increasing Effexor XR. Increased Effexor XR to 112.5 mg daily. 7. 21-day hold paperwork filed. Patient was apologetic about his irritability and refusal of treatment. We discussed working on a treatment plan and had appropriate medications so that we might feel more secure about discharge. Involuntary Hold Information 2 96 Hour Hold: 96 Hour Involuntary Admission: Yes 96 Hour Hold Ending Date: 08/13/24 96 Hour Hold Ending Time: 16:04 Other Hold: Hold End Date: 08/07/24 Attestations NPU 2 Medical Necessity Statement*: Inpatient hospitalization is medically necessary and?the clinically appropriate intervention ?at this time.? We will monitor/initiate medications and make changes as indicated.? The patient?s likely length of stay 2-4 days. Coding Level of Care Code Acute Code for g Fwd Diagnoses Major depressive disorder, recurrent severe without psychotic features F33.2 Alcohol abuse F10.10 Borderline personality disorder F60.3
[2024-08-18] MEDS: venlafaxine ER (24HR) 37.5 mg Capsule 112.5 MG PO (08:15)
[2024-08-18] MEDS: thiamine 100 mg Tablet PO (08:15)
[2024-08-18] MEDS: folic acid 1 mg Tablet PO (08:15)
[2024-08-18] MEDS: multivitamin therapeutic Tablet 1 TAB PO (08:15)
[2024-08-18 14:00] VITALS: BP 141/95; PULSE 90; RESP 16; TEMP 36.7; O2SAT 100
[2024-08-18 22:00] VITALS: BP 138/92; PULSE 79; RESP 18; TEMP 36.6; O2SAT 99
[2024-08-19 06:00] VITALS: BP 128/85; PULSE 67; RESP 17; TEMP 36.6; O2SAT 100
--- NOTE | 2024-08-19 07:32 | P.NPUPN_ITS ---
Subjective NPU 2 Subjective: Patient presented today reporting that he is doing pretty well. He had an opportunity to be helpful to his roommate last night and he identified the seizure was starting. He was very helpful and was able to get staff's attention. He reports continuing to be optimistic about the future and denying any desire to go back to these past behaviors that were problematic. He continues to endorse a willingness to do outpatient rehab and is agreeable to his contacts being approached to make sure that his social network is aware of his needs. He denied any side effects to the medication. Mental Status Exam 2 MSE Comments: This is a well-nourished well-developed white male with hospital scrubs with adequate grooming and improving eye contact. No abnormal movements except for psychomotor retardation. Cooperative with exam in no acute distress. His speech was more normal in regards to rate, rhythm, and prosody. Mood was described as feeling better, affect: Congruent. Thought process organized. Thought content: He denied any homicidal ideation or current suicidal ideation. There was no clear evidence of delusional thinking. There were healed scars noted on his hand and wrist. He denied auditory or visual hallucinations. Attention and concentration were improving and memory appeared more reliable but none were formally tested. He was alert and oriented to person place time and situation. His insight and judgment appeared improving. His impulse control appeared seem to be improving as well.. Vitals/I&O/Wt Last Vital Signs Temp 97.8 F 08/19/24 06:00 Pulse 67 08/19/24 06:00 Resp 17 08/19/24 06:00 BP 128/85 08/19/24 06:00 Pulse Ox 100 08/19/24 06:00 O2 Del Method Room Air 08/15/24 14:00 O2 Flow Rate 15 08/07/24 22:00 08/18/24 08/19/24 08/19/24 22:59 06:59 14:59 Intake Total 900 / 900 Output Total 450 / 450 Balance 450 / 450 Weight last 48 hrs Weight 74.026 kg Data NPU 08/08/24 04:34 08/08/24 04:34 A&P Assessment and plan (1) Major depressive disorder, recurrent severe without psychotic features: (2) Alcohol abuse: (3) Borderline personality disorder: Plan 28-year-old male history of self-injurious behavior, dysthymia, and alcohol abuse admitted after overdose on alcohol and multiple unknown medications after discharge less than 24 hours prior to this admission. 1. Engage patient in individual milieu and group therapy. 2. Recommend sober living treatment at the highest level of care to which the patient is willing to commit 3. CIWA for alcohol withdrawal 4. TO-15 minute checks? 5. Will attempt to gather collateral information. Spoke to his and she identified concerns about post discharge. Later spoke to him about these concerns and he did produce a list of people including his parents and the fire and oncology physician assistant Supervisor [employer] that we would be able to speak to prior to discharging. 6. Patient resumed medication and we will consider the possibility of increasing Effexor XR. Increased Effexor XR to 112.5 mg daily. 7. 21-day hold paperwork filed. Patient was apologetic about his irritability and refusal of treatment. We discussed working on a treatment plan and had appropriate medications so that we might feel more secure about discharge. Involuntary Hold Information 2 96 Hour Hold: 96 Hour Involuntary Admission: Yes 96 Hour Hold Ending Date: 08/13/24 96 Hour Hold Ending Time: 16:04 Other Hold: Hold End Date: 08/07/24 Attestations NPU 2 Medical Necessity Statement*: Inpatient hospitalization is medically necessary and?the clinically appropriate intervention ?at this time.? We will monitor/initiate medications and make changes as indicated.? The patient?s likely length of stay 2-4 days. Coding Level of Care Code Acute Code for [facility] Fwd Diagnoses Major depressive disorder, recurrent severe without psychotic features F33.2 Alcohol abuse F10.10 Borderline personality disorder F60.3
[2024-08-19] MEDS: venlafaxine ER (24HR) 37.5 mg Capsule 112.5 MG PO (08:24)
[2024-08-19] MEDS: multivitamin therapeutic Tablet 1 TAB PO (08:24)
[2024-08-19] MEDS: folic acid 1 mg Tablet PO (08:25)
[2024-08-19] MEDS: thiamine 100 mg Tablet PO (08:25)
[2024-08-19 14:00] VITALS: BP 134/81; PULSE 92; RESP 17; TEMP 36.7; O2SAT 99
[2024-08-19] MEDS: trazodone 50 mg Tablet PO (19:53)
[2024-08-19 21:07] VITALS: BP 140/89; PULSE 76; RESP 18; TEMP 36.8; O2SAT 100
[2024-08-20 06:00] VITALS: BP 123/75; PULSE 55; RESP 17; TEMP 36.5; O2SAT 99
[2024-08-20] MEDS: multivitamin therapeutic Tablet 1 TAB PO (08:35)
[2024-08-20] MEDS: thiamine 100 mg Tablet PO (08:35)
[2024-08-20] MEDS: venlafaxine ER (24HR) 37.5 mg Capsule 112.5 MG PO (08:35)
[2024-08-20] MEDS: folic acid 1 mg Tablet PO (08:35)
[2024-08-20 13:42] VITALS: BP 133/86; PULSE 77; RESP 16; TEMP 36.8; O2SAT 99
[2024-08-20 20:05] VITALS: BP 136/87; PULSE 60; RESP 16; O2SAT 99
[2024-08-20] MEDS: trazodone 50 mg Tablet PO (20:29)
--- NOTE | 2024-08-20 20:58 | P.NPUPN_ITS ---
Subjective NPU 2 Subjective: Patient presented today reporting that he is feeling a little better. He is identifying the limitations in his [place] and trying to connect with people so that he will be truly supported on discharge. He is working with the social work team to make sure there is a clear understanding in his network about what is been going on and we discussed the possibility of discharge this week. He denied any side effects to the medication. Mental Status Exam 2 MSE Comments: This is a well-nourished well-developed white male with hospital scrubs with adequate grooming and improving eye contact. No abnormal movements except for psychomotor retardation. Cooperative with exam in no acute distress. His speech was more normal in regards to rate, rhythm, and prosody. Mood was described as feeling better, affect: Congruent. Thought process organized. Thought content: He denied any homicidal ideation or current suicidal ideation. There was no clear evidence of delusional thinking. There were healed scars noted on his hand and wrist. He denied auditory or visual hallucinations. Attention and concentration were improving and memory appeared more reliable but none were formally tested. He was alert and oriented to person place time and situation. His insight and judgment appeared improving. His impulse control appeared seem to be improving as well.. Vitals/I&O/Wt Last Vital Signs Temp 98.3 F 08/20/24 13:42 Pulse 60 08/20/24 20:05 Resp 16 08/20/24 20:05 BP 136/87 08/20/24 20:05 Pulse Ox 99 08/20/24 20:05 O2 Del Method Room Air 08/20/24 20:05 O2 Flow Rate 15 08/07/24 22:00 Weight last 48 hrs Weight 74.026 kg Data NPU 08/08/24 04:34 08/08/24 04:34 A&P Assessment and plan (1) Major depressive disorder, recurrent severe without psychotic features: (2) Alcohol abuse: (3) Borderline personality disorder: Plan 28-year-old male history of self-injurious behavior, dysthymia, and alcohol abuse admitted after overdose on alcohol and multiple unknown medications after discharge less than 24 hours prior to this admission. 1. Engage patient in individual milieu and group therapy. 2. Recommend sober living treatment at the highest level of care to which the patient is willing to commit 3. CIWA for alcohol withdrawal 4. TO-15 minute checks? 5. Will attempt to gather collateral information. Spoke to his and she identified concerns about post discharge. Later spoke to him about these concerns and he did produce a list of people including his parents and the fire and sales assistants and salespersons Addiction Counselor that we would be able to speak to prior to discharging. 6. Patient resumed medication and we will consider the possibility of increasing Effexor XR. Increased Effexor XR to 112.5 mg daily. 7. 21-day hold paperwork filed. Patient was apologetic about his irritability and refusal of treatment. We discussed working on a treatment plan and had appropriate medications so that we might feel more secure about discharge. Involuntary Hold Information 2 96 Hour Hold: 96 Hour Involuntary Admission: Yes 96 Hour Hold Ending Date: 08/13/24 96 Hour Hold Ending Time: 16:04 Other Hold: Hold End Date: 08/07/24 Attestations NPU 2 Medical Necessity Statement*: Inpatient hospitalization is medically necessary and?the clinically appropriate intervention ?at this time.? We will monitor/initiate medications and make changes as indicated.? The patient?s likely length of stay 1-3 days. Coding Level of Care Code Acute Code for [facility] Fwd Diagnoses Major depressive disorder, recurrent severe without psychotic features F33.2 Alcohol abuse F10.10 Borderline personality disorder F60.3
[2024-08-21 06:00] VITALS: BP 109/69; PULSE 79; RESP 16; TEMP 36.5; O2SAT 99
--- NOTE | 2024-08-21 06:48 | W.PM.NPUPNS ---
Subjective NPU Subjective: Patient presented today reporting that he is doing fine. 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 He reports that the medication is working fine and we discussed the plan to ultimately titrate him up to 150 mg on the Effexor likely shortly after discharge. He denied any side effects of medication. Mental Status Exam MSE Comments: This is a well-nourished well-developed white male with hospital scrubs with adequate grooming and improving eye contact. No abnormal movements except for psychomotor retardation. Cooperative with exam in no acute distress. His speech was more normal in regards to rate, rhythm, and prosody. Mood was described as feeling good, affect: Congruent. Thought process organized. Thought content: He denied any homicidal ideation or current suicidal ideation. There was no clear evidence of delusional thinking. There were healed scars noted on his hand and wrist. He denied auditory or visual hallucinations. Attention and concentration were improving and memory appeared more reliable but none were formally tested. He was alert and oriented to person place time and situation. His insight and judgment appeared improving. His impulse control appeared seem to be improving as well.. Vitals/I&O/Wt Last Vital Signs Temp 97.7 F 08/21/24 06:00 Pulse 79 08/21/24 06:00 Resp 16 08/21/24 06:00 BP 109/69 08/21/24 06:00 Pulse Ox 99 08/21/24 06:00 O2 Del Method Room Air 08/21/24 06:00 O2 Flow Rate 15 08/07/24 22:00 Data NPU 08/08/24 04:34 08/08/24 04:34 A&P Assessment and plan (1) Major depressive disorder, recurrent severe without psychotic features: (2) Alcohol abuse: (3) Borderline personality disorder: Plan 28-year-old male history of self-injurious behavior, dysthymia, and alcohol abuse admitted after overdose on alcohol and multiple unknown medications after discharge less than 24 hours prior to this admission. 1. Engage patient in individual milieu and group therapy. 2. Recommend sober living treatment at the highest level of care to which the patient is willing to commit 3. CIWA for alcohol withdrawal 4. TO-15 minute checks? 5. Will attempt to gather collateral information. Spoke to his and she identified concerns about post discharge. Later spoke to him about these concerns and he did produce a list of people including his parents and the fire and assistant property manager Automobile Body Repair Supervisor that we would be able to speak to prior to discharging. 6. Patient resumed medication and we will consider the possibility of increasing Effexor XR. Increased Effexor XR to 112.5 mg daily. 7. 21-day hold paperwork filed. Patient was apologetic about his irritability and refusal of treatment. We discussed working on a treatment plan and had appropriate medications so that we might feel more secure about discharge. Tentative plan for discharge tomorrow. Involuntary Hold Information 96 Hour Hold: 96 Hour Involuntary Admission: Yes 96 Hour Hold Ending Date: 08/13/24 96 Hour Hold Ending Time: 16:04 Other Hold: Hold End Date: 08/07/24 Attestations NPU Medical Necessity Statement*: Inpatient hospitalization is medically necessary and?the clinically appropriate intervention ?at this time.? We will monitor/initiate medications and make changes as indicated.? The patient?s likely length of stay 1-2 days. Coding Level of Care Code Acute Code for [facility] Fwd Diagnoses Major depressive disorder, recurrent severe without psychotic features F33.2 Alcohol abuse F10.10 Borderline personality disorder F60.3
[2024-08-21] MEDS: multivitamin therapeutic Tablet 1 TAB PO (09:22)
[2024-08-21] MEDS: thiamine 100 mg Tablet PO (09:22)
[2024-08-21] MEDS: folic acid 1 mg Tablet PO (09:22)
[2024-08-21] MEDS: venlafaxine ER (24HR) 37.5 mg Capsule 112.5 MG PO (09:22)
[2024-08-21 13:30] VITALS: BP 128/81; PULSE 79; RESP 16; TEMP 36.6; O2SAT 100
[2024-08-21] MEDS: trazodone 50 mg Tablet PO (20:02)
[2024-08-21 20:18] VITALS: BP 125/85; PULSE 74; RESP 18; O2SAT 99
[2024-08-22 06:00] VITALS: BP 108/64; PULSE 90; RESP 18; TEMP 36.7; O2SAT 99
[2024-08-22] MEDS: folic acid 1 mg Tablet PO (08:12)
[2024-08-22] MEDS: venlafaxine ER (24HR) 37.5 mg Capsule 112.5 MG PO (08:13)
[2024-08-22] MEDS: thiamine 100 mg Tablet PO (08:13)
[2024-08-22] MEDS: multivitamin therapeutic Tablet 1 TAB PO (09:20)
--- NOTE | 2024-08-22 13:31 | W.PM.NPUDCS ---
Diagnoses at Discharge Discharge Diagnosis (1) Major depressive disorder, recurrent severe without psychotic features: Status: Acute (2) Alcohol abuse: Status: Acute (3) Borderline personality disorder: Status: Acute Reason for Visit Reason for Visit: Overdose Involuntary Hold Information 96 Hour Hold: 96 Hour Involuntary Admission: Yes 96 Hour Hold Ending Date: 08/13/24 96 Hour Hold Ending Time: 16:04 Other Hold: Hold End Date: 08/07/24 Mental Status Exam MSE Comments: This is a well-nourished well-developed white male with hospital scrubs with adequate grooming and improving eye contact. No abnormal movements except for psychomotor retardation. Cooperative with exam in no acute distress. His speech was more normal in regards to rate, rhythm, and prosody. Mood was described as feeling good, affect: Congruent. Thought process organized. Thought content: He denied any homicidal ideation or current suicidal ideation. There was no clear evidence of delusional thinking. There were healed scars noted on his hand and wrist. He denied auditory or visual hallucinations. Attention and concentration were improving and memory appeared more reliable but none were formally tested. He was alert and oriented to person place time and situation. His insight and judgment appeared improving. His impulse control appeared seem to be improving as well.. Discharge Data Studies Completed and Pending: Completed Studies During Hospitalization Category Date Time Status XR chest 1V stephanie ble [id number] Stat Exams 08/07/24 17:21 Completed Radiology Impressions Chest X-Ray 08/07/24 17:21 IMPRESSION: No acute findings. Laboratory Results WBC 8.76 10^3/uL (3.2 9-11.43) 08/08/24 04:34 RBC 4.68 10^6/uL (3.8 5-5.65) 08/08/24 04:34 Hgb 14.20 g/dL (11.27 -16.99) 08/08/24 04:34 Hct 42.5 % (37-53) 08/08/24 04:34 MCV 90.8 fl (82-101) 08/08/24 04:34 MCH 30.3 pg (27-33) 08/08/24 04:34 MCHC 33.4 g/dL (30-55) D 08/08/24 04:34 RDW 12.6 % (12.1-15.1 ) 08/08/24 04:34 Plt Count 143 10^3/cmm (157 -399) L 08/08/24 04:34 MPV 10.2 fL (7.4-10.4 ) 08/08/24 04:34 Neut % (Auto) 84.5 % 08/08/24 04:34 Lymph % (Auto) 8.6 % 08/08/24 04:34 [place] % (Auto) 5.5 % 08/08/24 04:34 Eos % (Auto) 0.7 % 08/08/24 04:34 Baso % (Auto) 0.2 % 08/08/24 04:34 Neut # (Auto) 7.41 10^3/uL (1.8 -7.7) 08/08/24 04:34 Lymph # (Auto) 0.8 10^3/uL (0.8- 4.8) 08/08/24 04:34 [place] # (Auto) 0.5 10^3/uL (0.2- 0.9) 08/08/24 04:34 Eos # (Auto) 0.1 10^3/uL (0.0- 0.8) 08/08/24 04:34 Baso # (Auto) 0.0 10^3/uL (0.0- 0.1) 08/08/24 04:34 Nucleated RBC % (a uto) 0 % 08/08/24 04:34 Nucleated RBCs # 0.0 /100WBC 08/08/24 04:34 Specimen Type Arterial 08/08/24 00:00 Sample Site Right radial 08/08/24 00:00 ABG pH 7.35 (7.35-7.45) 08/08/24 00:00 ABG pCO2 45.3 mmHg (35-45) H 08/08/24 00:00 ABG pO2 490.0 mmHg (80.0- 100.0) H 08/08/24 00:00 ABG PO2/FiO2 Ratio 490 08/08/24 00:00 ABG HCO3 25.2 mmol/L (22-2 6) 08/08/24 00:00 ABG O2 Saturation Not Reportable 08/08/24 00:00 ABG Base Excess -0.7 mmol/L (-2.0 -2.0) 08/08/24 00:00 Navid Test Pos 08/08/24 00:00 A-a O2 Gradient Not Reportable 08/08/24 00:00 Hematocrit 41.6 % (42-52) L 08/08/24 00:00 Hgb O2 Saturation 98.1 % (95-100) 08/08/24 00:00 Carboxyhemoglobin 0.6 %THgb (0.4-20 .1) 08/08/24 00:00 Methemoglobin 1.4 % (0.4-1.5) 08/08/24 00:00 Total Hemoglobin 13.6 g/dL (14-18) L 08/08/24 00:00 Sodium 141.0 mmol/L (131 -143) 08/08/24 00:00 Potassium 3.6 mmol/L (3.5-5 .0) 08/08/24 00:00 Glucose 83.0 mg/dL (70-11 5) 08/08/24 00:00 Ionized Calcium 1.1 mmol/L (1.1-1 .4) 08/08/24 00:00 O2 Delivery Device Nrb 08/08/24 00:00 O2 Liters/Min 15.0 % 08/08/24 00:00 FiO2 100.0 % 08/08/24 00:00 Specimen Drawn By Tahir 08/08/24 00:00 Spare Hand Carding ID Noel 08/08/24 00:00 Sodium 140 mmol/L (136-1 45) 08/08/24 04:34 Potassium 4.1 mmol/L (3.5-5 .1) 08/08/24 04:34 Chloride 105 mmol/L (98-10 7) 08/08/24 04:34 Carbon Dioxide 26 mmol/L (22-29) 08/08/24 04:34 Anion Gap 13.1 (5-19) 08/08/24 04:34 BUN 11 mg/dL (6-20) 08/08/24 04:34 Creatinine 0.8 mg/dL (0.7-1. 2) 08/08/24 04:34 GFR Calculation 115.1 mL/min (90- 130) 08/08/24 04:34 Glucose 81 mg/dL (65-115) 08/08/24 04:34 CarboxyHGB (auto) Comm 6 %TOTAL HGB 08/07/24 20:00 Calculated Osmolal ity 288 mOsm/kg (285- 295) 08/08/24 04:34 Calcium 8.3 mg/dL (8.5-10 .5) L 08/08/24 04:34 Total Bilirubin 0.3 mg/dL (0.15-1 .2) 08/07/24 15:48 AST 21 U/L (0-40) 08/07/24 15:48 ALT 18 U/L (0-41) 08/07/24 15:48 Alkaline Phosphata se 67 U/L (40-130) 08/07/24 15:48 Total Protein 7.5 g/dL (6.6-8.7 ) 08/07/24 15:48 Albumin 5.1 g/dL (3.5-5.2 ) 08/07/24 15:48 Globulin 2.4 g/dL (1.3-4.6 ) 08/07/24 15:48 TSH 3.59 uIU/mL (0.27 -4.20) 08/07/24 15:48 Salicylates < 0.3 mg/dL (3-10 ) L 08/07/24 15:48 Urine Opiates Scre en Negative ng/mL (N egative) 08/07/24 21:10 Acetaminophen < 5.0 ug/mL (10-3 0) L 08/07/24 15:48 Ur Barbiturates Sc reen Negative ng/mL (N egative) 08/07/24 21:10 Ur Phencyclidine S crn Negative ng/mL (N egative) 08/07/24 21:10 Ur Amphetamines Sc reen Negative ng/mL (N egative) 08/07/24 21:10 U Benzodiazepines Scrn Negative ng/mL (N egative) 08/07/24 21:10 Urine Cocaine Scre en Negative ng/mL (N egative) 08/07/24 21:10 U Marijuana (THC) Screen Negative ng/mL (N egative) 08/07/24 21:10 Ethyl Alcohol 179 mg/dL (0-10) H 08/07/24 15:48 Vitals: Last Vital Signs Temp 98.0 F 08/22/24 06:00 Pulse 90 08/22/24 06:00 Resp 18 08/22/24 06:00 BP 108/64 08/22/24 06:00 Pulse Ox 99 11/13/24 06:00 O2 Del Method Room Air 11/12/24 13:30 O2 Flow Rate 15 08/07/24 22:00 Discharge Plan Discharge Patient Disposition: Home Condition: Stable Prescriptions: New thiamine mononitrate (vit B1) [Vitamin B-1 (mononitrate)] 100 mg Tablet 100 mg PO DAILY 30 Days Qty: 30 1RF Continued venlafaxine [Effexor XR] 37.5 mg capsule,extended release 24hr 37.5 mg PO DAILY 7 Days Qty: 7 0RF Rx Instructions: Take with 37.5 milligrams to make 112.5 mg for 7 days then increase to 150mg venlafaxine [Effexor XR] 75 mg capsule,extended release 24hr 75 mg PO DAILY 7 Days Qty: 7 0RF Rx Instructions: Take with 37.5 milligrams to make 112.5 mg for 7 days then increase to 150mg venlafaxine [Effexor XR] 150 mg capsule,extended release 24hr 150 mg PO QAM 30 Days Qty: 30 1RF Rx Instructions: Begin after 7 days at 112.5 mg folic acid 1 mg tablet 1 mg PO DAILY hydroxyzine HCl 25 mg tablet 25 mg PO TID trazodone 50 mg tablet 50 mg PO QPM 30 Days Qty: 30 1RF Discharge Orders: Discharge Order (Routine); Ordered 08/22/24 Ordered By: Shin Juarez Referrals: [facility] [Other] [facility] [Other] Cher Breaux LCSW [Other] [facility] [Outside] Tim Samuel FNP [Nurse Practitioner] - Discharge Diet: Regular Discharge Activity: Resume usual activity Patient Instructions: Opioid Safety Discharge Attestations NPU Time Spent in Discharge Care*: less than 30 min Specific Discharge Activities: Specific discharge activities: educating patient, discussing with correctional counselor/case manager/social workers/dc planners, documenting/other paperwork and evaluating patient/reviewing data Coding Level of Care Code Acute Code for Chg Fwd Diagnoses Major depressive disorder, recurrent severe without psychotic features F33.2 Alcohol abuse F10.10 Borderline personality disorder F60.3
[2024-08-22 13:36] VITALS: BP 108/64; PULSE 90; RESP 18; TEMP 36.7; O2SAT 99
[2024-08-22 14:57] VITALS: BP 136/86; PULSE 59; RESP 18; TEMP 36.6; O2SAT 95
== END 2024-08-22 17:38 | disposition home or self-care (01) | DRG 918 ==
LOC: ER 17:06 → ICU 17:54 → NP 08-08 11:19
PROVIDERS: Internal Medicine; Admitting Provider Family Medicine; Emergency Provider Emergency Medicine; Visit Provider Family Medicine
DX: T58.02XA Toxic effect of carbon monoxide from motor vehicle exhaust, intentional self-harm, initial encounter (principal); F33.2 Major depressive disorder, recurrent severe without psychotic features; T43.212A Poisoning by selective serotonin and norepinephrine reuptake inhibitors, intentional self-harm, initial encounter; F10.129 Alcohol abuse with intoxication, unspecified; Y90.6 Blood alcohol level of 120-199 mg/100 ml; F60.3 Borderline personality disorder; Y92.59 Other trade areas as the place of occurrence of the external cause
CPT/HCPCS: 36415; 36600; 71045; 80048; 80051; 80053; 80306; 80307; 82330; 82375; 82805; 84443; 85025; 93005; 94664; 97150; 97165; 99285; 99291; 99292; J2470; J3411; J3490; J7030; J7042